=== PATIENT | female | born 1960 | race Caucasian/White ===

== ENCOUNTER → 2017-05-15 | Outpatient (CLI) | payer BC ==
--- NOTE | 2017-05-15 15:56 | BD ---
EXAMINATION TYPE: MG DEXA axial skeleton. DATE OF EXAM: 05/15/2017 COMPARISON: NONE CLINICAL HISTORY: N95.1 POST MENOPAUSAL SYMPTOMS Height: 64.5 Weight: 135 FRAX RISK QUESTIONS: Alcohol (3 or more units per day): NO Family History (Parent hip fracture): NO Glucocorticoids (More than 3mos): NO (Ex: prednisone, prednisolone, methylprednisolone, dexamethasone, and hydrocortisone). History of Fracture in Adulthood: YES Secondary Osteoporosis: NO 1. Type 1 Diabetes: NO 2. Hyperthyroidism: NO 3. Menopause before 45: NO 4. Malnutrition: NO 5. Chronic liver disease: NO Rheumatoid Arthritis: NO Current Tobacco Use: QUIT RISK FACTORS HISTORY OF: HX OF ADULT FRACTURE....RT HUMERUS 2014 Active: YES Diet low in dairy products/other sources of calcium: NO Postmenopausal woman: COMPLETE HX 2015 Lost more than 2 inches in height since high school: NO Hyperparathyroidism: NO Adrenal Insufficiency: NO MEDICATIONS: Additional Medications: MULTIVITAMIN AND FISH OIL DAILY ONLY Additional History: NONE TO NOTE EXAM MEASUREMENTS: Bone mineral densitometry was performed using the [employer] System. Bone mineral density as measured about the Lumbar spine is: ----- L1-L4(G/cm2): 0.840 T Score Values are as follows: ----- L1: -2.6 ----- L2: -2.9 ----- L3: -2.5 ----- L4: -3.4 ----- L1-L4: -2.8 Bone mineral density THIS IS HER FIRST BONE DENSITY SCAN.....BASELINE STUDY Bone mineral density about the R hip (g/cm2): 0.805 Bone mineral density about the L hip (g/cm2): 0.846 T Score values are as follows: -----R Neck: -2.1 -----L Neck: -2.3 -----R Total: -1.6 -----L Total: -1.3 Bone mineral density BASELINE STUDY FOR HER FRAX %'S: THERE IS A 14.9% CHANCE OF A MAJOR OSTEOPOROTIC FX AND A 2.6% CHANCE OF A HIP FX........ .PROBABILITY IN 10 YRS TIME IMPRESSION: Osteoporosis (T Score less than -2.5) as noted by T Score values at the There is increased fracture risk and therapy is usually indicated based on age. Re-Screen 1-2 years FOR HER LUMBAR SPINE. NOTE: T-SCORE=SD OF THE YOUNG ADULT MEAN.
--- NOTE | 2017-05-18 08:08 | MM ---
Reason for exam: screening (asymptomatic). Last mammogram was performed 1 year and 2 months ago. History: Patient is postmenopausal. Physical Findings: A clinical breast exam by your physician is recommended on an annual basis and results should be correlated with mammographic findings. MG 3D Screening Mammo W/Cad Bilateral CC and MLO view(s) were taken. Prior study comparison: March 18, 2016, bilateral MG 3d screening mammo w/cad. February 26, 2015, bilateral MG screening mammo w CAD. The breast tissue is extremely dense which could obscure a lesion on mammography. There is no discrete abnormality. No significant changes when compared with prior studies. ASSESSMENT: Negative, BI-RAD 1 RECOMMENDATION: Routine screening mammogram of both breasts in 1 year.
== END | disposition home or self-care (01) ==
LOC: RADMAMWWP 06:58
PROVIDERS: ATTEND Obstetrics & Gynecology
DX: Z12.31 Encounter for screening mammogram for malignant neoplasm of breast (principal); M81.0 Age-related osteoporosis without current pathological fracture; N95.1 Menopausal and female climacteric states
CPT/HCPCS: 77080; 77063; G0202

== ENCOUNTER → 2018-06-01 | Outpatient (CLI) | payer BC ==
--- NOTE | 2018-06-03 08:48 | MM ---
Reason for exam: screening (asymptomatic). Last mammogram was performed 1 year and 1 month ago. History: Patient is postmenopausal. Physical Findings: A clinical breast exam by your physician is recommended on an annual basis and results should be correlated with mammographic findings. MG 3D Screening Mammo W/Cad Bilateral CC and MLO view(s) were taken. Prior study comparison: May 15, 2017, bilateral MG 3d screening mammo w/cad. March 18, 2016, bilateral MG 3d screening mammo w/cad. The breast tissue is heterogeneously dense. This may lower the sensitivity of mammography. No significant changes when compared with prior studies. ASSESSMENT: Negative, BI-RAD 1 RECOMMENDATION: Routine screening mammogram of both breasts in 1 year. Patient should continue monthly self breast exams. A negative report should not preclude additional follow up of suspicious palpable abnormalities.
== END | disposition home or self-care (01) ==
LOC: RADMAMWWP 09:10
PROVIDERS: ATTEND Obstetrics & Gynecology
DX: Z12.31 Encounter for screening mammogram for malignant neoplasm of breast (principal)
CPT/HCPCS: 77063; 77067

== ENCOUNTER → 2019-06-17 | Outpatient (CLI) | payer BC ==
--- NOTE | 2019-06-17 17:40 | BD ---
EXAMINATION TYPE: Axial Bone Density DATE OF EXAM: 06/17/2019 COMPARISON: NONE CLINICAL HISTORY: Height: 65 Weight: 133.5 FRAX RISK QUESTIONS: Alcohol (3 or more units per day): no Family History (Parent hip fracture): no Glucocorticoids (More than 3mos): no (Ex: prednisone, prednisolone, methylprednisolone, dexamethasone, and hydrocortisone). History of Fracture in Adulthood: yes Secondary Osteoporosis: 1. Type 1 Diabetes: no 2. Hyperthyroidism: no 3. Menopause before 45: no 4. Malnutrition: no 5. Chronic liver disease: no Rheumatoid Arthritis: no Current Tobacco Use: no RISK FACTORS HISTORY OF: Postmenopausal woman: age 54 Lost more than 2 inches in height since high school: no MEDICATIONS: none Additional History: EXAM MEASUREMENTS: Bone mineral densitometry was performed using the [employer] System. Bone mineral density as measured about the Lumbar spine is: ----- L1-L4(G/cm2): 0.857 T Score Values are as follows: ----- L2: -2.8 ----- L3: -2.7 ----- L4: -2.8 ----- L1-L4: -2.7 Bone mineral density has: increased 2.7 % since study of: 05.15.2017 Bone mineral density about the R hip (g/cm2): 0.728 Bone mineral density about the L hip (g/cm2): 0.671 T Score values are as follows: -----R Neck: -2.2 -----L Neck: -2.6 -----R Total: -1.5 -----L Total: -1.4 Bone mineral density has: decreased -0.4 % since study of: 05.15.2017 IMPRESSION: Osteoporosis (T Score less than -2.5). There is increased fracture risk and therapy is usually indicated based on age. Re-Screen 1-2 years. NOTE: T-SCORE=SD OF THE YOUNG ADULT MEAN.
--- NOTE | 2019-06-20 10:17 | MM ---
Reason for exam: screening (asymptomatic). Last mammogram was performed 1 year and 1 month ago. History: Patient is postmenopausal. Physical Findings: A clinical breast exam by your physician is recommended on an annual basis and results should be correlated with mammographic findings. MG 3D Screening Mammo W/Cad Bilateral CC and MLO view(s) were taken. Prior study comparison: June 01, 2018, bilateral MG 3d screening mammo w/cad. May 15, 2017, bilateral MG 3d screening mammo w/cad. The breast tissue is heterogeneously dense. This may lower the sensitivity of mammography. No suspicious abnormality. No significant changes when compared with prior studies. ASSESSMENT: Negative, BI-RAD 1 RECOMMENDATION: Routine screening mammogram of both breasts in 1 year.
== END | disposition home or self-care (01) ==
LOC: RADMAMWWP 07:24
PROVIDERS: ATTEND Obstetrics & Gynecology
DX: Z12.31 Encounter for screening mammogram for malignant neoplasm of breast (principal); M81.0 Age-related osteoporosis without current pathological fracture
CPT/HCPCS: 77063; 77067; 77080

== ENCOUNTER 2020-07-04 11:20 | Inpatient (IN) | payer BC ==
[2020-07-04] MEDS ORDERED: SODIUM CHLORIDE 0.9% 500 ML 500 ML IV ONE (11:54)
--- NOTE | 2020-07-04 11:59 | ED ---
General Adult HPI - General Chief complaint: Psychiatric Symptoms Stated complaint: phych eval dizziness Time Seen by Provider: 07/04/20 11:25 Source: patient, RN notes reviewed, old records reviewed Mode of arrival: ambulatory Limitations: no limitations - History of Present Illness Initial comments: 59-year-old female presents emergency department after she had seen her primary medical care doctor. She has stated that she hit her head a while ago but she's not sure exactly when and she's here to be evaluated for that but according to Dr. kellogg when she called and she has to have a psychiatric evaluation because she has been paranoid and hallucinating and even talked about slitting her wrists. Patient lost her job a few weeks back and this when the symptoms started again. Patient believes her computer and her email are compromised. Patient denies any neck pain patient denies any fever chills per patient denies any chest pain difficulty breathing shortest breath per patient denies any abdominal pain patient denies nausea vomiting diarrhea. - Related Data Home Medications Medication Instructions Recorded Confirmed Multivitamins, Thera [Multivitamin 1 tab PO DAILY 10/09/16 10/21/16 (formulary)] Beulah-3 Fatty Acids/Fish Oil [Fish 1 cap PO DAILY 10/09/16 10/21/16 Oil 1,000 mg Softgel] Previous Rx's Medication Instructions Recorded Acetaminophen-Codeine 300-30mg 1 each PO Q4HR PRN #30 tab 10/23/16 [Tylenol w/codeine #3] Ibuprofen [Motrin] 600 mg PO Q6HR PRN #60 tab 10/23/16 Allergies Allergy/AdvReac Type Severity Reaction Status Date / Time No Known Allergies Allergy Verified 10/21/16 06:17 Review of Systems ROS Statement: Those systems with pertinent positive or pertinent negative responses have been documented in the HPI. ROS Other: All systems not noted in ROS Statement are negative. Past Medical History Past Medical History: No Reported History Additional Past Medical History / Comment(s): Fracture of left humerus History of Any Multi-Drug Resistant Organisms: None Reported Past Surgical History: Hysterectomy Additional Past Surgical History / Comment(s): wisdom teeth removed Past Anesthesia/Blood Transfusion Reactions: No Reported Reaction Past Psychological History: Depression Smoking Status: Former smoker Past Alcohol Use History: Daily, Heavy Past Drug Use History: None Reported - Past Family History Mother Family Medical History: No Reported History Additional Family Medical History / Comment(s): Stroke General Exam - General Exam Comments Initial Comments: GENERAL: Patient is well-developed and well-nourished. Patient is nontoxic and well- hydrated and is in mild distress. ENT: Neck is soft and supple. No significant lymphadenopathy is noted. Oropharynx is clear. Moist mucous membranes. Neck has full range of motion without eliciting any pain. EYES: The sclera were anicteric and conjunctiva were pink and moist. Extraocular movements were intact and pupils were equal round and reactive to light. Eyelids were unremarkable. PULMONARY: Unlabored respirations. Good breath sounds bilaterally. No audible rales rhonchi or wheezing was noted. CARDIOVASCULAR: There is a regular rate and rhythm without any murmurs gallops or rubs. ABDOMEN: Soft and nontender with normal bowel sounds. SKIN: Skin is clear with no lesions or rashes and otherwise unremarkable. NEUROLOGIC: Patient is alert and oriented x3. Cranial nerves II through XII are grossly intact. Motor and sensory are also intact. Normal speech, volume and content. Symmetrical smile. MUSCULOSKELETAL: Normal extremities with adequate strength and full range of motion. LYMPHATICS: No significant lymphadenopathy is noted PSYCHIATRIC: Normal psychiatric evaluation. Limitations: no limitations Course Vital Signs 07/04/20 11:23 Temperature 98.6 F Pulse Rate 96 Respiratory 16 Rate Blood Pressure 190/124 O2 Sat by Pulse 98 Oximetry Medical Decision Making - Lab Data Result diagrams: 07/04/20 12:55 07/04/20 13:01 Lab Results 07/04/20 07/04/20 Range/Units 12:55 13:01 WBC 5.5 (3.8-10.6) k/uL RBC 4.68 (3.80-5.40) m/uL Hgb 14.7 (11.4-16.0) gm/dL Hct 45.0 (34.0-46.0) % MCV 96.1 (80.0-100.0) fL MCH 31.4 (25.0-35.0) pg MCHC 32.7 (31.0-37.0) g/dL RDW 12.0 (11.5-15.5) % Plt Count 292 (150-450) k/uL Neutrophils % 61 % Lymphocytes % 27 % Monocytes % 7 % Eosinophils % 2 % Basophils % 1 % Neutrophils # 3.4 (1.3-7.7) k/uL Lymphocytes # 1.5 (1.0-4.8) k/uL Monocytes # 0.4 (0-1.0) k/uL Eosinophils # 0.1 (0-0.7) k/uL Basophils # 0.1 (0-0.2) k/uL Sodium 137 (137-145) mmol/L Potassium 4.3 (3.5-5.1) mmol/L Chloride 104 (98-107) mmol/L Carbon Dioxide 23 (22-30) mmol/L Anion Gap 10 mmol/L BUN 8 (7-17) mg/dL Creatinine 0.62 (0.52-1.04) mg/dL Est GFR (CKD-EPI)AfAm >90 (>60 ml/min/1.73 sqM) Est GFR (CKD-EPI)NonAf >90 (>60 ml/min/1.73 sqM) Glucose 107 H (74-99) mg/dL Calcium 9.9 (8.4-10.2) mg/dL Total Bilirubin 0.8 (0.2-1.3) mg/dL AST 24 (14-36) U/L ALT 16 (4-34) U/L Alkaline Phosphatase 56 (38-126) U/L Total Protein 7.6 (6.3-8.2) g/dL Albumin 4.9 (3.5-5.0) g/dL Disposition Clinical Impression: Depression, Psychosis, Suicidal ideation Disposition: ADMITTED IP TO THIS HOSP Referrals: Katie Cassidy MD [Primary Care Provider] - 1-2 days Time of Disposition: 14:51
[2020-07-04 13:23] LABS: Basophils # (A) 0.1 k/uL (0-0.2); Basophils % (A) 1 %; Eosinophils # (A) 0.1 k/uL (0-0.7); Eosinophils % (A) 2 %; HGB 14.7 gm/dL (11.4-16.0); Lymphocytes # (A) 1.5 k/uL (1.0-4.8); Lymphocytes % (A) 27 %; MCH 31.4 pg (25.0-35.0); MCHC 32.7 g/dL (31.0-37.0); MCV 96.1 fL (80.0-100.0); Mean Platelet Volume 7.4; Monocytes # (A) 0.4 k/uL (0-1.0); Monocytes % (A) 7 %; Neutrophils # (A) 3.4 k/uL (1.3-7.7); Neutrophils % (A) 61 %; Platelet Count 292 k/uL (150-450); RBC 4.68 m/uL (3.80-5.40); WBC 5.5 k/uL (3.8-10.6)
[2020-07-04 13:34] LABS: ALT 16 U/L (4-34); AST 24 U/L (14-36); African American GFR (CKD) >90 (>60 ml/min/1.73 sqM); Albumin 4.9 g/dL (3.5-5.0); Alkaline Phosphatase 56 U/L (38-126); Anion Gap 10 mmol/L; Blood Urea Nitrogen 8 mg/dL (7-17); Calcium 9.9 mg/dL (8.4-10.2); Carbon Dioxide 23 mmol/L (22-30); Chloride 104 mmol/L (98-107); Glucose 107 mg/dL (74-99); Non-African American GFR(CKD) >90 (>60 ml/min/1.73 sqM); Potassium 4.3 mmol/L (3.5-5.1); Sodium 137 mmol/L (137-145); Total Bilirubin 0.8 mg/dL (0.2-1.3); Total Protein 7.6 g/dL (6.3-8.2)
--- NOTE | 2020-07-04 14:02 | CT ---
EXAMINATION TYPE: CT brain wo con DATE OF EXAM: 07/04/2020 COMPARISON: None HISTORY: dizziness CT DLP: 1099.4 mGycm Automated exposure control for dose reduction was used. FINDINGS: Within the anterior temporal fossa on the right there is a 1.4 x 1 cm arachnoid cyst. Mild intracrani al atherosclerotic changes seen. Cerebellar tonsils low-lying at the level of foramen magnum. No evidence of mass effect or midline shift. No acute hemorrhage. Calvarium intact. Changes of mild c hronic sinusitis. IMPRESSION: SMALL ARACHNOID CYST RIGHT ANTERIOR TEMPORAL FOSSA.
[2020-07-04 14:58] LABS: Appearance,Urine Clear (Clear); Bacteria,Urine Rare /hpf; Bilirubin,Urine Negative (Negative); Blood,Urine Negative (Negative); Color,Urine Yellow; Glucose,Urine (UA) Negative (Negative); Hyaline Casts,Urine 3 /lpf (0-2); Ketones,Urine 1+ (Negative); Leukocyte Esterase,Urine Large (Negative); Mucus,Urine Occasional /hpf; Nitrite,Urine Negative (Negative); PH, Urine 5.5 (5.0-8.0); Protein,Urine Negative (Negative); RBC,Urine 3 /hpf (0-5); Specific Gravity,Urine 1.014 (1.001-1.035); Squamous Epithelial Cell,Urine 2 /hpf (0-4); Urobilinogen,Urine <2.0 mg/dL (<2.0); WBC,Urine 24 /hpf (0-5)
[2020-07-04 15:05] LABS: Amphetamine Screen,Urine Not Detected (NotDetected); Barbiturate Screen,Urine Not Detected (NotDetected); Benzodiazepines Screen,Urine Not Detected (NotDetected); Cocaine Screen,Urine Not Detected (NotDetected); Methadone Screen, Urine Not Detected (NotDetected); Opiate Screen,Urine Not Detected (NotDetected); Oxycodone Screen, Urine Not Detected (NotDetected); Phencyclidine Screen,Urine Not Detected (NotDetected); Tricyclic Antidepressant,Urine Not Detected (NotDetected); Urn Cannabinoid Scrn Not Detected (NotDetected)
[2020-07-04] MEDS ORDERED: LORazepam 1 MG TAB PO STA (17:48)
[2020-07-04] MEDS ORDERED: cloNIDine HCL 0.1 MG TAB PO STA (17:48)
[2020-07-04] MEDS ORDERED: MAG HYDROX/AL HYDROX/SIMETH 30 ML CUP PO PRN (18:20)
[2020-07-04] MEDS ORDERED: ACETAMINOPHEN TAB 325 MG TAB PO PRN (18:20)
[2020-07-04] MEDS ORDERED: ZIPRASIDONE 20 MG VIAL IM PRN (18:20)
[2020-07-04] MEDS ORDERED: LORazepam 1 MG TAB PO PRN (18:20)
[2020-07-04] MEDS ORDERED: MAGNESIUM HYDROXIDE 2,400 MG/10 ML CUP PO PRN (18:20)
--- NOTE | 2020-07-05 09:04 | P.HP ---
Psychiatric H&P - . H&P Date: 07/05/20 History & Physical: Allergies Allergy/AdvReac Type Severity Reaction Status Date / Time No Known Allergies Allergy Verified 07/04/20 15:03 Vital Signs Temp 98.5 F 07/05/20 06:25 Pulse 100 07/05/20 06:25 Resp 16 07/05/20 06:25 BP 99/60 07/05/20 06:25 Pulse Ox 98 07/04/20 17:34 Intake & Output 07/04/20 07/05/20 07/05/20 18:59 06:59 18:59 Weight 54.431 kg 54.431 kg Laboratory Last Values WBC 5.5 k/uL (3.8-10.6) 07/04/20 12:55 RBC 4.68 m/uL (3.80-5.40) 07/04/20 12:55 Hgb 14.7 gm/dL (11.4-16.0) 07/04/20 12:55 Hct 45.0 % (34.0-46.0) 07/04/20 12:55 MCV 96.1 fL (80.0-100.0) 07/04/20 12:55 MCH 31.4 pg (25.0-35.0) 07/04/20 12:55 MCHC 32.7 g/dL (31.0-37.0) 07/04/20 12:55 RDW 12.0 % (11.5-15.5) 07/04/20 12:55 Plt Count 292 k/uL (150-450) 07/04/20 12:55 Neutrophils % 61 % 07/04/20 12:55 Lymphocytes % 27 % 07/04/20 12:55 Monocytes % 7 % 07/04/20 12:55 Eosinophils % 2 % 07/04/20 12:55 Basophils % 1 % 07/04/20 12:55 Neutrophils # 3.4 k/uL (1.3-7.7) 07/04/20 12:55 Lymphocytes # 1.5 k/uL (1.0-4.8) 07/04/20 12:55 Monocytes # 0.4 k/uL (0-1.0) 07/04/20 12:55 Eosinophils # 0.1 k/uL (0-0.7) 07/04/20 12:55 Basophils # 0.1 k/uL (0-0.2) 07/04/20 12:55 Sodium 137 mmol/L (137-145) 07/04/20 13:01 Potassium 4.3 mmol/L (3.5-5.1) 07/04/20 13:01 Chloride 104 mmol/L (98-107) 07/04/20 13:01 Carbon Dioxide 23 mmol/L (22-30) 07/04/20 13:01 Anion Gap 10 mmol/L 07/04/20 13:01 BUN 8 mg/dL (7-17) 07/04/20 13:01 Creatinine 0.62 mg/dL (0.52-1.04) 07/04/20 13:01 Est GFR (CKD-EPI)AfAm >90 (>60 ml/min/1.73 sqM) 07/04/20 13:01 Est GFR (CKD-EPI)NonAf >90 (>60 ml/min/1.73 sqM) 07/04/20 13:01 Glucose 107 mg/dL (74-99) H 07/04/20 13:01 Calcium 9.9 mg/dL (8.4-10.2) 07/04/20 13:01 Total Bilirubin 0.8 mg/dL (0.2-1.3) 07/04/20 13:01 AST 24 U/L (14-36) 07/04/20 13:01 ALT 16 U/L (4-34) 07/04/20 13:01 Alkaline Phosphatase 56 U/L (38-126) 07/04/20 13:01 Total Protein 7.6 g/dL (6.3-8.2) 07/04/20 13:01 Albumin 4.9 g/dL (3.5-5.0) 07/04/20 13:01 TSH 0.773 mIU/L (0.465-4.680) 07/04/20 13:01 Urine Color Yellow 07/04/20 14:30 Urine Appearance Clear (Clear) 07/04/20 14:30 Urine pH 5.5 (5.0-8.0) 07/04/20 14:30 Ur Specific Dewitt 1.014 (1.001-1.035) 07/04/20 14:30 Urine Protein Negative (Negative) 07/04/20 14:30 Urine Glucose (UA) Negative (Negative) 07/04/20 14:30 Urine Ketones 1+ (Negative) H 07/04/20 14:30 Urine Blood Negative (Negative) 07/04/20 14:30 Urine Nitrite Negative (Negative) 07/04/20 14:30 Urine Bilirubin Negative (Negative) 07/04/20 14:30 Urine Urobilinogen <2.0 mg/dL (<2.0) 07/04/20 14:30 Ur Leukocyte Esterase Large (Negative) H 07/04/20 14:30 Urine RBC 3 /hpf (0-5) 07/04/20 14:30 Urine WBC 24 /hpf (0-5) H 07/04/20 14:30 Ur Squamous Epith Cells 2 /hpf (0-4) 07/04/20 14:30 Urine Bacteria Rare /hpf (None) H 07/04/20 14:30 Hyaline Casts 3 /lpf (0-2) H 07/04/20 14:30 Urine Mucus Occasional /hpf (None) H 07/04/20 14:30 Urine Opiates Screen Not Detected (NotDetected) 07/04/20 14:30 Ur Oxycodone Screen Not Detected (NotDetected) 07/04/20 14:30 Urine Methadone Screen Not Detected (NotDetected) 07/04/20 14:30 Ur Propoxyphene Screen Not Detected (NotDetected) 07/04/20 14:30 Ur Barbiturates Screen Not Detected (NotDetected) 07/04/20 14:30 U Tricyclic Antidepress Not Detected (NotDetected) 07/04/20 14:30 Ur Phencyclidine Scrn Not Detected (NotDetected) 07/04/20 14:30 Ur Amphetamines Screen Not Detected (NotDetected) 07/04/20 14:30 U Methamphetamines Scrn Not Detected (NotDetected) 07/04/20 14:30 U Benzodiazepines Scrn Not Detected (NotDetected) 07/04/20 14:30 Urine Cocaine Screen Not Detected (NotDetected) 07/04/20 14:30 U Marijuana (THC) Screen Not Detected (NotDetected) 07/04/20 14:30 07/05/20 07:19 59-year-old female presents emergency department after she had seen her primary medical care doctor. She has stated that she hit her head a while ago but she's not sure exactly when and she's here to be evaluated for that. According to her outpatient doctor, she has been paranoid and hallucinating and even talked about slitting her wrists. The patient was stabilized in the emergency room and transferred to the psychiatric unit she has not required when necessary's. Patient quit her job a few weeks back and this is when the symptoms started again. Patient believes her computer and her email and bank account are compromised. Symptoms: Patient acknowledges that she wished she was . 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 She asked her for firearm but is also been thinking of slitting her wrist. She says that these things occurred about a week ago and have been fading and at this point she has hope for the future. Review of systems: Patient denies any neck pain patient denies any fever chills per patient denies any chest pain difficulty breathing shortest breath per patient denies any abdominal pain patient denies nausea vomiting diarrhea. The rest of the review of systems is negative Medical.: The patient has no history of medical problems She had a physical exam done yesterday and it was negative for problems She did have a fracture of her left humerus She had a total hysterectomy about 6 years ago and her wisdom teeth removed Substance use: Patient has a history of heavy alcohol use denies other substances and she used to smoke Social history: The patient is second of 3 children born to her parents and stayed together until they in their 80s both with vascular problems dad had a stroke and mom had an aneurysm. She said she had a good upbringing and had a normal and early development she finished high school and enjoyed her time in high school playing in the [employer] playing the [employer]. 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 She had been for 31 years and says the marriage is going well. They have 3 sons ages 3028 and 26. She says older to use too much alcohol but her 26-year-old is doing well and is engaged in as a son who is a-year-old. She lives in a house with her and a dog and a Cat. And is somewhat worried about the cat as it is getting older. She has not done much lately to take care of herself as the only IT person at her job she does not take medications and she has tried to push herself to get out and golf but only once this summer. The patient denies any history The patient denies any legal issues Family history: The patient denies anybody in the family with severe depression or anxiety or psychiatric issues Mental status exam: The patient slept fairly well for her first night in the hospital. Her appetite is low and she has lost over 20 pounds. Memory and concentration are impaired for a college graduate IT person. She could remember 2 of 3 objects after 3 minutes, she could only name the last 2 presidents, she could only name for the [place] and had no idea where they were, she was able to subtract 7 from 93 but her processing is slow. She did well with abstract thinking, for "the grass looks greener on the other side of the fence" she said that means "make a change for the better". She saw the cats and snakes have teeth but could not think of any other similarity although that fact that they have tones came into her head and she was hesitant to share. So risk- taking and generativity are low. She could not remember the word carnivore or figure out what herbal or might mean and once I gave her those 2 definitions she could not reason out what an omnivore might be or what floor meant. This is very poor functioning for someone of her past ability. She is somewhat worried that old age is causing her dementia. ( I do not think this is dementia just depression). She says that the thoughts of suicidality were strong up until about a week ago but have been fading and since she came into the hospital basically vanished. She says she thinks she needs to find work in an entirely different field and go to some counseling to learn to stand up for herself and set better limits. Her affect is flat she moves slowly, eye contact is down, takes deep breaths, responds slowly she is not tearful no evidence of responding to any psychotic features and denies any hallucinations illusions or delusions. Diagnosis major depression single episode nonpsychotic Assessment the patient probably cannot climb out of this depression by simply staying off work and trying to push herself to go golfing because she gets to ruminating on maybe she should've done this and why couldn't she do that. I do not think that she has paranoia but what happened was to get understandable worries and be unable to turn them off and make them bigger than they really deserved. Plan: start Cymbalta and melatonin for sleep ever go to groups and classes and see how she functions and bright discharge her tomorrow as she is not suicidal at this time 07/05/20 08:51 07/05/20 09:01
[2020-07-05] MEDS: DULoxetine HCL 20 MG CAPSULE.DR PO SCH (09:43)
[2020-07-05] MEDS: MELATONIN 5 MG TABLET PO SCH (21:32)
--- NOTE | 2020-07-06 00:56 | P.CONS ---
History of Present Illness - History of Present Illness This is a pleasant 59 years old female with past medical history of depression. Was admitted for signs and symptoms of severe depression to mental health unit, medical consult was requested for medical management. Patient was walking in the hallway with no difficulty, no chest pain or dyspnea. Denies any abdominal complaints or pain. She tolerates diet well and she denie s nausea vomiting. No fever She is hemodynamically stable She denies smoking alcohol or illicit drugs however she drinks beers every day but she could not say how much Last drink was 2 days, no signs or symptoms of withdrawal currently Labs and vitals were reviewed which were unremarkable except for abnormal UA with suspicion of infection however patient denies any symptoms, no dysuria, no change in frequency, no urgency or hesitancy, no suprapubic tenderness. This of this patient does not need antibiotic Review of Systems CONSTITUTIONAL: No fever, no malaise, no fatigue. HEENT: No recent visual problems or hearing problems. Denied any sore throat. CARDIOVASCULAR: No orthopnea, PND, no palpitations, no syncope. PULMONARY: No shortness of breath, no cough, no hemoptysis. GASTROINTESTINAL: No diarrhea, no nausea, no vomiting, no abdominal pain. Normoa ctive bowel sounds. NEUROLOGICAL: No headaches, no weakness, no numbness. HEMATOLOGICAL: Denies any bleeding or petechiae. GENITOURINARY: Denies any burning micturition, frequency, or urgency. MUSCULOSKELETAL/RHEUMATOLOGICAL: Denies any joint pain, swelling, or any muscle pain. ENDOCRINE: Denies any polyuria or polydipsia. Past Medical History Past Medical History: No Reported History Additional Past Medical History / Comment(s): Fracture of left humerus History of Any Multi-Drug Resistant Organisms: None Reported Past Surgical History: Hysterectomy Additional Past Surgical History / Comment(s): wisdom teeth removed Past Anesthesia/Blood Transfusion Reactions: No Reported Reaction Past Psychological History: Depression Smoking Status: Former smoker Past Alcohol Use History: Daily, Heavy Additional Past Alcohol Use History / Comment(s): 5 cigs/day for 30 yrs. Past Drug Use History: None Reported - Past Family History Mother Family Medical History: No Reported History Additional Family Medical History / Comment(s): Stroke Medications and Allergies Home Medications Medication Instructions Recorded Confirmed Type Multivitamins, Thera [Multivitamin 1 tab PO DAILY 10/09/16 07/04/20 History (formulary)] Calcium Carbonate/Vitamin D3 1 tab PO DAILY 07/04/20 07/04/20 History [Caltrate 600 Plus D3 Tablet] Allergies Allergy/AdvReac Type Severity Reaction Status Date / Time No Known Allergies Allergy Verified 07/04/20 15:03 Physical Exam Vitals: Vital Signs Temp Pulse Pulse Resp BP BP Pulse Ox 07/05/20 09:44 107 H 16 105/70 07/05/20 06:25 98.5 F 100 16 99/60 07/04/20 20:54 91 89/56 07/04/20 19:33 97.8 F 90 20 150/104 07/04/20 19:26 101 H 164/107 07/04/20 17:34 98.1 F 94 18 163/99 98 GENERAL: The patient is alert and oriented x3, not in any acute distress. Well developed, well nourished. HEENT: Pupils are round and equally reacting to light. EOMI. No scleral icterus. No conjunctival pallor. Normocephalic, atraumatic. No pharyngeal erythema. No thyromegaly. CARDIOVASCULAR: S1 and S2 present. No murmurs, rubs, or gallops. PULMONARY: Chest is clear to auscultation, no wheezing or crackles. ABDOMEN: Soft, nontender, nondistended, normoactive bowel sounds. No palpable organomegaly. MUSCULOSKELETAL: No joint swelling or deformity. EXTREMITIES: No cyanosis, clubbing, or pedal edema. NEUROLOGICAL: Gross neurological examination did not reveal any focal deficits. SKIN: No rashes. No petechiae Results CBC & Chem 7: 07/04/20 12:55 07/04/20 13:01 Labs: Microbiology - Last 24 Hours (Table) 07/04/20 14:30 Urine Culture - Preliminary Urine,Voided Assessment and Plan Assessment: -Major depression and other psychiatric illnesses, managements were psych primary team -Alcohol abuse at-risk of alcohol withdrawal, continue with Ativan as needed and thiamin -Asymptomatic bacteriuria, patient is asymptomatic and no need for treatment DVT prophylaxis: Patient is mobile, low risk GI prophylaxis, no need We recommend patient follow up with her PCP within one week, patient was instructed with the same Thank you for consulting us, we will see the patient on as needed basis
[2020-07-06] MEDS: THIAMINE 100 MG TAB PO SCH (09:25)
[2020-07-06] MEDS: DULoxetine HCL 20 MG CAPSULE.DR PO SCH (09:25)
--- NOTE | 2020-07-06 11:00 | P.PN ---
Subjective Progress Note Date: 07/06/20 Principal diagnosis: Major depression single severe Alcohol abuse disorder Subjective the patient's talk to me and was basically complaining about having a terrible memory and that she doesn't enjoy groups because she can't figure out what's going on. I gave her some brief ideas to comfort herself and she could not retain. She asked to talk to me again sat down and stared at me and then she said, " I can't be here". But could not make a case for post discharge plans Objective patient has flat affect vacant stares slow responses decreased body activity Groups the patient has been attending and talks well with peers and staff is spontaneous poor ADLs Staff report is that she is oriented but vague withdrawn compliant disheveled denies suicide homicide or psychotic symptoms Vital signs temperature is 97.9 heart rate 110 respirations 17 blood pressure 146/90 pO2 is 97 Labs nothing new Assessment patient is severely slowed down from her depression and cannot understand basic ideas plan communicate or take care of herself Plan increase Cymbalta to 40 and on Thursday to 60 Objective - Vital Signs Vital signs: Vital Signs Temp 97.9 F 07/06/20 06:28 Pulse 110 H 07/06/20 06:28 Resp 17 07/06/20 06:28 BP 146/90 07/06/20 06:28 Pulse Ox 97 07/06/20 06:28 - Labs CBC & Chem 7: 07/04/20 12:55 07/04/20 13:01 Labs: Microbiology - Last 24 Hours (Table) 07/04/20 14:30 Urine Culture - Final Urine,Voided Strep agalactiae - (group b)
[2020-07-06] MEDS: MELATONIN 5 MG TABLET PO SCH (21:06)
[2020-07-07] MEDS: DULoxetine HCL 20 MG CAPSULE.DR PO SCH (09:22)
[2020-07-07] MEDS: THIAMINE 100 MG TAB PO SCH (09:22)
[2020-07-07] MEDS: AMOXICILLIN 500 MG CAP PO SCH ×2 (13:30→22:12)
--- NOTE | 2020-07-07 14:04 | PN ---
PROGRESS NOTE DATE OF SERVICE: 07/07/2020 CHIEF COMPLAINT: The patient was depressed. She had ongoing depression over the last year with recent intensification to the point where she asked her for a gun. INTERVAL HISTORY: Patient has been doing fair. She had a quiet day yesterday. She comes out in the day area. She has been attending groups. She has been appropriate in her interactions. She has been cooperative with all aspects of care. She tends to have a withdrawn quiet manner. At times she was noted in groups to be disorganized in thoughts. She slept fairly well last night. Today she has been up. She attended groups today and in 1 group it was documented "the patient attended group and attentively listened to discussion. The patient chose not to participate verbally." When I reviewed issues with the patient. She notes that her drinking history goes back 7 or 8 years. Prior to that, she had not had any substance use issues. She could acknowledge that at least to some extent drinking was a coping mechanism for stress, in part relating to a high stress work situation. She noted over the last 7 years she was typically drinking a six- pack a day though sometimes less. She did not have any periods of sobriety in the last 6 or 7 years. She acknowledged that she did not really have the concept that drinking was a problem for her, though she notes that she had a lot of stress in the early part of this year with the fact that her son was troubled with substance abuse issues. She notes that there was increasing stress with the COVID situation. She quit her job 2 weeks ago, in part because she felt the demands were getting too much for her to keep up with. 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 Overall she feels that her mood is improving some, though it is noteworthy that she presents in somewhat of a daze. She asked questions about how long she would be in the hospital. As one example, I talked to her about the process of going through withdrawal and noting that as a 2-3 month process. The patient asked the question would she need to be in the hospital for that length of time. She acknowledged that she has had recent struggles with memory, focus, concentration and information processing. We discussed all of these as a part of substance withdrawal from alcohol. The patient tolerates her psychotropic medication. MENTAL STATUS: Patient sat without restlessness. At times she seemed to have almost a blank stare. She answered questions with 1 or 2 word responses. She was not spontaneous or interactive. At times she had latency in response and seemed to have trouble organizing her thoughts. Her affect was flat. Her mood was moderately depressed. She appeared to be distressed. There was no clear indication of thought disorder, though the patient was able to acknowledge that her thoughts coming into the hospital were possibly not in touch with reality. She was denying any thoughts of harm to self or others. She was oriented and alert. ASSESSMENT: I will continue the current diagnosis of depression, though would add alcohol dependence and acute alcohol withdrawal. Vital signs have fluctuated, though vital signs this morning at 9:30 included BP 135/98, pulse 101 and regular, temp 98, respirations 20. CIWA scores have been zero. I will continue Cymbalta 40 mg a day. I had an extensive discussion with the patient regarding alcohol withdrawal. We discussed time course of typically 2-3 months of early withdrawal. We reviewed withdrawal symptoms. I discussed a therapeutic activity program to help manage early withdrawal symptoms. We talked about ways to help organize her day so that she can start becoming productive in one way or another. We talked about longer-term goals such as her returning to school or aiming towards productive activities in her life. We will focus on stabilization and discharge planning. AURORA / HEDYN: [id number] /
[2020-07-07] MEDS: MELATONIN 5 MG TABLET PO SCH (22:13)
[2020-07-08] MEDS: DULoxetine HCL 20 MG CAPSULE.DR PO SCH (08:44)
[2020-07-08] MEDS: AMOXICILLIN 500 MG CAP PO SCH ×2 (08:44→21:18)
[2020-07-08] MEDS: THIAMINE 100 MG TAB PO SCH (08:44)
[2020-07-08] MEDS: MELATONIN 5 MG TABLET PO SCH (21:18)
[2020-07-09 07:15] VITALS: TEMP 98.8
[2020-07-09] MEDS: DULoxetine HCL 20 MG CAPSULE.DR PO SCH (09:24)
[2020-07-09] MEDS: AMOXICILLIN 500 MG CAP PO SCH ×2 (09:24→21:18)
[2020-07-09] MEDS: THIAMINE 100 MG TAB PO SCH (09:24)
--- NOTE | 2020-07-09 10:56 | PN ---
PROGRESS NOTE DATE OF SERVICE: 07/08/2020 CHIEF COMPLAINT: The patient was depressed, she had ongoing depression over the last year with recent intensification to the point where she asked her for a gun. INTERVAL HISTORY: Patient has been doing fair. She had a quiet day yesterday. She comes out on the unit, though she tends to have a very quiet reserved manner. She has been attending groups. She seems to benefit from groups, though she says very little in group. She slept fair last night. Today she has been up. She did not attend groups this morning. When I talked to her she did not have any specific complaints or concerns. She notes that her visited yesterday. They talked about some of her issues. She said that her attributed a lot of her problems to just the stress she was under with work and a few other issues. She said that she talked to her about the idea that she can have alcohol at home and that she has to stay completely off alcohol. She said her was in agreement with that. The patient acknowledged that she has had issues with organizing her thoughts and being on track with thought processes. When I reviewed the note of Dr. Aponte from Thursday where she almost seemed confused, it was not clear that she was fully aware of how she was functioning on Thursday. She acknowledges that her thought process is not so clear and she continues with memory issues. She does seem to understand that most of this is secondary to early acute alcohol withdrawal. She seems to be slowly coming to acceptance of the extent of problem she has had with her drinking. We had further discussion about what things she anticipates for her life going forward and she does seem to be somewhat in a fog about that. It is almost as if she does not imagine that she could accomplish more going forward. We talked about withdrawal management issues and I encouraged her to use the therapeutic walking program while she is on the unit and also how she can continue with a physical activity program when she is home to help manage early withdrawal. We talked about the benefits of that in terms of managing withdrawal issues as well as to help in improving her cognition. The patient tolerates her psychotropic medications. MENTAL STATUS EXAM: Patient sat without restlessness without restlessness. She had almost a staring gaze. She answered questions appropriately, though she says very little. At times there is latency in her responses. She at times seems to be deep in thought, though it is not clear she knows what to say when questions are asked. Her affect was blunted. Her mood reserved, she seems somewhat distressed. There was no indication of thought disorder other than the possibility of disorganized thoughts relating to her alcohol withdrawal. She voiced no thoughts of harm to herself or others. Cognition was clear. ASSESSMENT: I will continue the current diagnosis and treatment plan. Continue Cymbalta 40 mg a day as her only psychotropic medication. I reviewed medication issues with the patient. We had an extensive discussion with her regarding withdrawal and especially addressing cognitive issues that she is having, which are clearly related to early acute alcohol withdrawal. I discussed discharge planning issues. She says her will be visiting today and encouraged her to review discharge planning with him in what would be good options for followup for her. We will focus on stabilization and discharge planning. AURORA / ALYX: [id number] /
[2020-07-09] MEDS ORDERED: DULoxetine HCL 20 MG CAPSULE.DR PO SCH (11:15)
[2020-07-09] MEDS ORDERED: DULoxetine HCL 20 MG CAPSULE.DR PO ONE (12:00)
[2020-07-09] MEDS: MELATONIN 5 MG TABLET PO SCH (21:18)
[2020-07-10 06:42] VITALS: BP 124/69; PULSE 109; RESP 17
[2020-07-10] MEDS ORDERED: DULoxetine HCL 60 MG CAPSULE.DR PO SCH (09:00)
--- NOTE | 2020-07-10 09:39 | P.PN ---
Subjective Progress Note Date: 07/09/20 Principal diagnosis: Major depression single severe Alcohol abuse disorder Subjective: Patient says she been sleeping well and eating well. She still complains of memory problems and has trouble with decisions like is she doing well enough to be discharged or not. This is unusual because every patient seems to think that this is time for them to go and she is not sure. Objective: The patient has been attending groups, taking good care of her hygiene, so elements of withdrawal from Effexor withdrawal speech seems to be spontaneous, if somewhat soft. She does not talk much with peers but based good attention to staff does tend to wander in and out of group. She requires a lot of verbal prompting in order to participate in group. Overall she seems to be calm soft spoken and cooperative oriented and denies suicidality or homicidality and no psychotic symptoms Vital signs temperature is 98.8 heart rate is 115 respirations 16 blood pressure 133/85 Labs nothing Her who saw her this weekend and felt that she has made good progress and that he thinks she could be at home safely. I reviewed with him the purpose of the medications and how long it takes to work. Mental status exam the patient still uses words and has trouble forming plans and full sentences. However she is doing much better at solving problems such as where is my 's phone number. She went and got her own phone and read it off of that and then was able to remember at all the way back to my office she could remember 3 of 3 objects for 5 minutes she is not tearful no psychotic symptoms. She does not want to acknowledge that she got herself burned out and wants to say was alcohol. She will need to get into some help for dealing with that but she will need some counseling to counter her feeling that she has permanently damaged her brain and is all hopeless. Assessment patient is improving and I think can continue outpatient if she continues to do well today. So I'm looking for discharge tomorrow Objective - Vital Signs Vital signs: Vital Signs Temp 98.8 F 07/09/20 06:44 Pulse 115 H 07/09/20 06:44 Resp 16 07/09/20 06:44 BP 133/85 07/09/20 06:44 Pulse Ox 97 07/06/20 06:28 Intake & Output 07/08/20 07/09/20 07/09/20 18:59 06:59 18:59 Weight 53.7 kg - Labs CBC & Chem 7: 07/04/20 12:55 07/04/20 13:01
[2020-07-10] MEDS: AMOXICILLIN 500 MG CAP PO SCH (09:53)
[2020-07-10] MEDS: THIAMINE 100 MG TAB PO SCH (09:53)
[2020-07-10] MEDS ORDERED: DULoxetine HCL 20 MG CAPSULE.DR PO SCH (10:00)
--- NOTE | 2020-07-10 11:26 | P.DS ---
Providers Date of admission: 07/04/20 17:59 Expected date of discharge: 07/10/20 Attending physician: Yamilex Aponte MD Consults: 07/04/20 18:20 Consult Physician Routine Consulting Provider: Dev Mittal Consult Reason/Comments: H and P Do you want consulting provider notified?: Yes [facility] Course: The patient was admitted on 07/04/2024 depression hallucinating even making comments about slashing her wrists. She has gone to groups and classes and I've seen her every day and she is no more hallucinating or feeling suicidal. She is still bothered by her poor memory and low energy. She was started on Cymbalta and at 40 mg she has some anticholinergic side effects some blurred vision and a little dry mouth I'm not going to increase to 60 I think the 40 will work and will help her with focus and staying, calm. In group she was noted to be compliant somewhat blunted in her affect Stadol time talks with staff but not much with patients. Mental status: She had a slight feeling that other people don't like her and that "I don't fit in ". She also wants to blame her dysfunction on anything other than burn out. She is slow to respond decrease psychomotor activity and decreased eye contact gait and station are somewhat slow. However she is cooperative denies suicidal thoughts denies homicidal thoughts denies any hallucinations or delusions (I think the feeling that people don't like her talking about her just part of her depression.) She is oriented to person place time. Assessment patient still depressed but unexpected Cymbalta to work for a couple more weeks. She has good follow-up and good support from her and I think that she can go home and should not drive though until everybody agrees that her function is better. She was given a month's supply of Cymbalta and appointment for follow-up both for medications and counseling. Assessment: Patient is still depressed but no expect the medication to work for couple more weeks she has not been suicidal or homicidal and I think would do better in her natural environment and I talked her who felt that she had maximized her hospital benefit he would like to have her home so I think she is safe for discharge. Health Concerns: No acute medical problems review of systems is negative no reported history of chronic medical problems Pertinent Studies: She had a hematology run on 07/04/2020 which was fine chemistry was fine urine showed 1+ ketones probably because she wasn't eating she has been eating well in here no sugar in the urine. Toxicology showed no sign of substance abuse Vital signs: Temperature 98.8 heart rate 109's respirations 17 blood pressure 124/80 pO2 97 Procedures: None Patient Condition at Discharge: Stable Plan - Discharge Summary Discharge Rx Participant: No New Discharge Prescriptions: New Amoxicillin 500 mg PO BID cap DULoxetine HCL [Cymbalta] 40 mg PO DAILY 30 Days #60 capsule. Melatonin 5 mg PO HS tablet Thiamine [Vitamin B-1] 100 mg PO DAILY tab Continue Multivitamins, Thera [Multivitamin (formulary)] 1 tab PO DAILY Calcium Carbonate/Vitamin D3 [Caltrate 600 Plus D3 Tablet] 1 tab PO DAILY Discharge Medication List Multivitamins, Thera [Multivitamin (formulary)] 1 tab PO DAILY 10/09/16 [History] Calcium Carbonate/Vitamin D3 [Caltrate 600 Plus D3 Tablet] 1 tab PO DAILY 07/04/20 [History] Amoxicillin 500 mg PO BID cap 07/10/20 [Rx] DULoxetine HCL [Cymbalta] 40 mg PO DAILY 30 Days #60 capsule. 07/10/20 [Rx] Melatonin 5 mg PO HS tablet 07/10/20 [Rx] Thiamine [Vitamin B-1] 100 mg PO DAILY tab 07/10/20 [Rx] Follow up Appointment(s)/Referral(s): Katie Cassidy MD [Primary Care Provider] - 1-2 days Activity/Diet/Wound Care/Special Instructions: Activity and diet as tolerated. Avoid the use of street drugs and alcohol. Take all medications as prescribed. When you are in need of refills on your medications please contact your medical provider and/or outpatient psychiatrist to have this done. Please go to scheduled outpatient appointment for aftercare treatment. If symptoms return or become worse, call the crisis line at and/or go to the nearest emergency room for evaluation.
== END 2020-07-10 14:11 | disposition home or self-care (01) | DRG 885 ==
LOC: EC 11:20 → 3MHU 17:59
PROVIDERS: ADMIT Psychiatry & Neurology Psychiatry; ATTEND Psychiatry & Neurology Psychiatry
DX: F32.2 Major depressive disorder, single episode, severe without psychotic features (principal); R45.851 Suicidal ideations; F10.230 Alcohol dependence with withdrawal, uncomplicated; F29 Unspecified psychosis not due to a substance or known physiological condition; R82.71 Bacteriuria; Z79.899 Other long term (current) drug therapy; Z87.81 Personal history of (healed) traumatic fracture; Z90.710 Acquired absence of both cervix and uterus; Z56.0 Unemployment, unspecified; Z87.891 Personal history of nicotine dependence; Z82.3 Family history of stroke; Z82.49 Family history of ischemic heart disease and other diseases of the circulatory system
CPT/HCPCS: 36415; 70450; 80053; 80306; 81001; 82075; 84443; 85025; 87086; 96360; 96361; 99285

== ENCOUNTER 2020-09-08 13:08 | Inpatient (IN) | payer BC ==
--- NOTE | 2020-09-08 14:37 | XR ---
EXAMINATION TYPE: XR KUB DATE OF EXAM: 09/08/2020 COMPARISON: NONE HISTORY: Constipation for 1 week TECHNIQUE: 2 views upright FINDINGS: There is no sign of intestinal obstruction or pneumoperitoneum. Fecal pattern is fairly nor mal. There is no evidence of a mass. There are no pathologic calcifications over the kidneys. Lung ba ses are clear. IMPRESSION: Nonacute abdomen. No evidence of any significant constipation.
[2020-09-08] MEDS ORDERED: SODIUM CHLORIDE 0.9% 1,000 ML IV STA (15:03)
[2020-09-08 15:33] LABS: Basophils % (A) 1 %; Eosinophils % (A) 1 %; HCT 41.6 % (34.0-46.0); HGB 14.1 gm/dL (11.4-16.0); Lymphocytes # (A) 1.1 k/uL (1.0-4.8); Lymphocytes % (A) 20 %; MCH 30.6 pg (25.0-35.0); MCHC 33.9 g/dL (31.0-37.0); Monocytes # (A) 0.3 k/uL (0-1.0); Monocytes % (A) 5 %; Neutrophils % (A) 73 %; Platelet Count 260 k/uL (150-450); RBC 4.61 m/uL (3.80-5.40); RDW 12.4 % (11.5-15.5); WBC 5.5 k/uL (3.8-10.6)
[2020-09-08 15:43] LABS: MCV 90.4 fL (80.0-100.0)
[2020-09-08 15:46] LABS: ALT 30 U/L (4-34); AST 34 U/L (14-36); African American GFR (CKD) >90 (>60 ml/min/1.73 sqM); Alkaline Phosphatase 62 U/L (38-126); Anion Gap 20 mmol/L; Blood Urea Nitrogen 20 mg/dL (7-17); Calcium 10.4 mg/dL (8.4-10.2); Carbon Dioxide 20 mmol/L (22-30); Chloride 97 mmol/L (98-107); Glucose 77 mg/dL (74-99); Lipase 154 U/L (23-300); Non-African American GFR(CKD) 85 (>60 ml/min/1.73 sqM); Potassium 4.1 mmol/L (3.5-5.1); Sodium 137 mmol/L (137-145); Total Bilirubin 1.3 mg/dL (0.2-1.3); Total Protein 7.6 g/dL (6.3-8.2)
--- NOTE | 2020-09-08 16:09 | ED ---
Psych HPI - General Source: patient, family Mode of arrival: ambulatory <Howie Rosario - Last Filed: 09/08/20 18:53> <Temo Verma - Last Filed: 09/08/20 19:49> - General Chief Complaint: Psychiatric Symptoms Stated Complaint: Mental health Time Seen by Provider: 09/08/20 14:03 - History of Present Illness Initial Comments: 59-year-old female presenting to the emergency department with a chief complaint of constipation. Patient states she has not been eating well for the past week. States she is only able to drink water. She denies any nausea or vomiting. States she feels constipated. states the patient has been battling with depression but has decided not to take her citalopram for the past few weeks. He states the medication as prescribed a primary care physician. The patient reports about 2 months ago she was admitted to the hospital for having suicidal thoughts. She is denying any suicidal, homicidal thoughts or ideations at the moment. She denies any abdominal pain back pain chest pain or shortness of breath. (Howie Rosario) - Related Data Home Medications Medication Instructions Recorded Confirmed Citalopram Hydrobromide [CeleXA] 20 mg PO DAILY 09/08/20 09/08/20 Allergies Allergy/AdvReac Type Severity Reaction Status Date / Time No Known Allergies Allergy Verified 09/08/20 19:23 Review of Systems ROS Other: All systems not noted in ROS Statement are negative. <Howie Rosario - Last Filed: 09/08/20 18:53> ROS Other: All systems not noted in ROS Statement are negative. <Temo Verma - Last Filed: 09/08/20 19:49> ROS Statement: Those systems with pertinent positive or pertinent negative responses have been documented in the HPI. Past Medical History Past Medical History: No Reported History Additional Past Medical History / Comment(s): Fracture of left humerus History of Any Multi-Drug Resistant Organisms: None Reported Past Surgical History: Hysterectomy Additional Past Surgical History / Comment(s): wisdom teeth removed Past Anesthesia/Blood Transfusion Reactions: No Reported Reaction Past Psychological History: Depression Smoking Status: Former smoker Past Alcohol Use History: Daily, Heavy Past Drug Use History: None Reported - Past Family History Mother Family Medical History: No Reported History Additional Family Medical History / Comment(s): Stroke <Howie Rosario - Last Filed: 09/08/20 18:53> General Exam Limitations: no limitations General appearance: alert, in no apparent distress Head exam: Present: atraumatic, normocephalic, normal inspection Eye exam: Present: normal appearance, PERRL, EOMI Pupils: Present: normal accommodation ENT exam: Present: normal exam, normal oropharynx, mucous membranes moist, TM's normal bilaterally, normal external ear exam Neck exam: Present: normal inspection, full ROM. Absent: tenderness Respiratory exam: Present: normal lung sounds bilaterally. Absent: respiratory distress, wheezes, rales Cardiovascular Exam: Present: regular rate, normal rhythm, normal heart sounds. Absent: bradycardia, tachycardia, systolic murmur, rubs GI/Abdominal exam: Present: soft. Absent: distended, tenderness, guarding, rebound Extremities exam: Present: normal inspection, full ROM, normal capillary refill. Absent: tenderness, pedal edema, joint swelling Back exam: Present: normal inspection, full ROM. Absent: tenderness, CVA tenderness (R), CVA tenderness (L) Neurological exam: Present: alert, oriented X3 Psychiatric exam: Present: depressed, flat affect Skin exam: Present: warm, dry, intact, normal color <Howie Rosario - Last Filed: 09/08/20 18:53> Course Vital Signs 09/08/20 13:52 Temperature 97.7 F Pulse Rate 97 Respiratory 18 Rate Blood Pressure 111/75 O2 Sat by Pulse 98 Oximetry Medical Decision Making - Lab Data Result diagrams: 09/08/20 15:19 09/08/20 15:19 <Howie Rosario - Last Filed: 09/08/20 18:53> - Lab Data Result diagrams: 09/08/20 15:19 09/08/20 15:19 <Temo Verma - Last Filed: 09/08/20 19:49> - Medical Decision Making 59-year-old female presenting to emergency Department with chief complaint of constipation. On physical examination, patient has no abdominal pain but she does appear to be depressed. I gave the patient water she was drinking and without any vomiting. KUB is unremarkable. CBC is unremarkable. CMP reveals increase in BUN which I suspect is secondary to not having much intake of fluids or solids. She was not able to give a urine sample. EPS evaluated patient and they will admit for further psychiatric management. Patient has 1 L bolus fluids. At this time patient care transferred to Dr. Verma. (Howie Rosario) patient was seen by mental health services with plans for admission. (Temo Verma) - Lab Data Lab Results 09/08/20 09/08/20 Range/Units 15:19 15:19 WBC 5.5 (3.8-10.6) k/uL RBC 4.61 (3.80-5.40) m/uL Hgb 14.1 (11.4-16.0) gm/dL Hct 41.6 (34.0-46.0) % MCV 90.4 D (80.0-100.0) fL MCH 30.6 (25.0-35.0) pg MCHC 33.9 (31.0-37.0) g/dL RDW 12.4 (11.5-15.5) % Plt Count 260 (150-450) k/uL MPV 8.0 Neutrophils % 73 % Lymphocytes % 20 % Monocytes % 5 % Eosinophils % 1 % Basophils % 1 % Neutrophils # 4.0 (1.3-7.7) k/uL Lymphocytes # 1.1 (1.0-4.8) k/uL Monocytes # 0.3 (0-1.0) k/uL Eosinophils # 0.0 (0-0.7) k/uL Basophils # 0.0 (0-0.2) k/uL Sodium 137 (137-145) mmol/L Potassium 4.1 (3.5-5.1) mmol/L Chloride 97 L (98-107) mmol/L Carbon Dioxide 20 L (22-30) mmol/L Anion Gap 20 mmol/L BUN 20 H (7-17) mg/dL Creatinine 0.77 (0.52-1.04) mg/dL Est GFR (CKD-EPI)AfAm >90 (>60 ml/min/1.73 sqM) Est GFR (CKD-EPI)NonAf 85 (>60 ml/min/1.73 sqM) Glucose 77 (74-99) mg/dL Calcium 10.4 H (8.4-10.2) mg/dL Total Bilirubin 1.3 (0.2-1.3) mg/dL AST 34 (14-36) U/L ALT 30 (4-34) U/L Alkaline Phosphatase 62 (38-126) U/L Total Protein 7.6 (6.3-8.2) g/dL Albumin 5.0 (3.5-5.0) g/dL Lipase 154 (23-300) U/L Disposition Is patient prescribed a controlled substance at d/c from ED?: No Time of Disposition: 18:56 <Howie Rosario - Last Filed: 09/08/20 18:53> <Temo Verma - Last Filed: 09/08/20 19:49> Clinical Impression: Depression Disposition: TRANSFER TO PSYCH HOSP/UNIT Condition: Fair
[2020-09-08] MEDS ORDERED: ACETAMINOPHEN TAB 325 MG TAB PO PRN (19:53)
[2020-09-08] MEDS ORDERED: MAGNESIUM HYDROXIDE 2,400 MG/10 ML CUP PO PRN (19:53)
[2020-09-08] MEDS ORDERED: MAG HYDROX/AL HYDROX/SIMETH 30 ML CUP PO PRN (19:53)
[2020-09-08] MEDS ORDERED: hydrOXYzine pamoate 25 MG CAP PO PRN (19:57)
--- NOTE | 2020-09-09 04:45 | P.CONS ---
History of Present Illness - Reason for Consult Consult date: 09/09/20 MEDICAL EVALUATIO N Requesting physician: Ed Mckay - Chief Complaint consitpation , dysphagia - History of Present Illness 59 year old female with depression , history of suicidal ideation patient was brought in by her due to severe depression and complaining that patient has very low PO input for the past 1-2 weeks patient claims that she is having dysphagia , and feels food stuck at the stomach , and she is not tolerating any solid food. she claims that liquids also make her nauseated. she claims that she has lost about 40 lb over past few months . she is afraid to eat. she denies any past medical history , denies any stomach pathology in the past, and prashanth having any EGD done in the past. patient admits to hearing noises that she cant explain at home, however she did not explain further when asked. patient denies any chest pain , trouble breathing, fever, chills, changes in her urine habits. she feels constipated. denies any GI bleed blood work in the ed was unremarkable overall. KUB was unremarkable Review of Systems Pertinent positives as noted in HPI. All other systems were reviewed and are negative Past Medical History Past Medical History: No Reported History Additional Past Medical History / Comment(s): Fracture of left humerus History of Any Multi-Drug Resistant Organisms: None Reported Past Surgical History: Hysterectomy Additional Past Surgical History / Comment(s): wisdom teeth removed Past Anesthesia/Blood Transfusion Reactions: No Reported Reaction Past Psychological History: Depression Smoking Status: Former smoker Past Alcohol Use History: Daily, Heavy Additional Past Alcohol Use History / Comment(s): 5 cigs/day for 30 yrs. Past Drug Use History: None Reported - Past Family History Mother Family Medical History: No Reported History Additional Family Medical History / Comment(s): Stroke Medications and Allergies Home Medications Medication Instructions Recorded Confirmed Type Citalopram Hydrobromide [CeleXA] 20 mg PO DAILY 09/08/20 09/08/20 History Allergies Allergy/AdvReac Type Severity Reaction Status Date / Time No Known Allergies Allergy Verified 09/08/20 21:50 Physical Exam Vitals: Vital Signs Temp Pulse Pulse Resp BP BP Pulse Ox 09/08/20 20:40 97.8 F 81 16 108/68 99 09/08/20 20:07 97.7 F 83 18 111/79 98 09/08/20 13:52 97.7 F 97 18 111/75 98 Intake and Output 09/08/20 09/08/20 09/09/20 14:59 22:59 06:59 Other: Weight 45.359 kg 44.5 kg Constitutional: No acute distress, cachetic Eyes: Anicteric sclerae, moist conjunctiva, Pupils equal round reactive to light ENMT: NC/AT Oropharynx clear, no erythema, or exudates Neck: Supple, FROM, no masses, or JVD No carotid bruits No thyromegaly Lungs: Clear to auscultation Clear to percussion Normal respiratory effort, no accessory muscle use Cardiovascular: Heart regular in rate and rhythm, No murmurs, gallops, or rubs No peripheral edema Abdominal: Soft tenderness over the epigastric , RUQ and LUQ to deep palpation no guarding, rebound or rigidity Abdomen moving with respiration Normoactive bowel sounds No hepatomegaly, No splenomegaly No palpable mass No abdominal wall hernia noted Skin: Normal temperature, tone, texture, turgor No induration No subcutaneous nodules No rash, lesions No ulcers Extremities: No digital cyanosis No clubbing Pedal pulses intact and symmetrical Radial pulses intact and symmetrical No calf tenderness Psychiatric: Alert and oriented to person, place depressed affect, avoids eye contact Neuro Muscles Strength -4/5 in all 4 extremities Sensation to light touch grossly present throughout Cranial nerves II-XII grossly intact No focal sensory deficits Lymphatics: no palpable cervical or supraclavicular , or inguinal lymph nodes Results CBC & Chem 7: 09/08/20 15:19 09/08/20 15:19 Labs: Abnormal Lab Results - Last 24 Hours (Table) 09/08/20 Range/Units 15:19 Chloride 97 L (98-107) mmol/L Carbon Dioxide 20 L (22-30) mmol/L BUN 20 H (7-17) mg/dL Calcium 10.4 H (8.4-10.2) mg/dL Assessment and Plan Assessment: severe protein calorie malnutrition with failure to thrive in adult dysphagia dyspepsia depression I would suggest psych evaluation first , patient known to have severe depression and suicidal ideation most likely her symptoms are related to her severe depression , i doubt there is underlying pathology palpable left submental lymphnode, tender, most likely reactive to dental condition , patient should have dental evaluation and US of the neck could be offered to better assess her LN. if this gets larger or persists for more than 2-3 weeks, then biopsy should be considered , however from my exam and evaluation , its most likely reactive to inflammatory process most likely related to her dental health however if psych wish to rule out any underlying pathology that could be truely causing dysphagia and epigastric pain I would suggest starting with video swallow eval, then EGD I added PPI BID for dyspepsia regardless wether testing requested for inpatient vs outpatient we should closely monitor for refeeding syndrome daily PO4, Mg , K , Ca, Na, should be monitored and replaced as needed especially for Po4 and Mg check TSH
[2020-09-09 07:18] LABS: Basophils % (A) 1 %; Eosinophils # (A) 0.1 k/uL (0-0.7); Eosinophils % (A) 1 %; HCT 38.6 % (34.0-46.0); Lymphocytes % (A) 19 %; MCH 31.4 pg (25.0-35.0); MCHC 33.7 g/dL (31.0-37.0); MCV 93.1 fL (80.0-100.0); Monocytes # (A) 0.3 k/uL (0-1.0); Monocytes % (A) 6 %; Neutrophils % (A) 72 %; Platelet Count 209 k/uL (150-450); RBC 4.15 m/uL (3.80-5.40); RDW 11.9 % (11.5-15.5); WBC 5.5 k/uL (3.8-10.6)
[2020-09-09 07:29] LABS: ALT 23 U/L (4-34); AST 28 U/L (14-36); African American GFR (CKD) >90 (>60 ml/min/1.73 sqM); Albumin 3.9 g/dL (3.5-5.0); Alkaline Phosphatase 54 U/L (38-126); Blood Urea Nitrogen 13 mg/dL (7-17); Carbon Dioxide 17 mmol/L (22-30); Cholesterol 200 mg/dL (<200); Glucose 61 mg/dL (74-99); Non-African American GFR(CKD) >90 (>60 ml/min/1.73 sqM); Total Bilirubin 1.3 mg/dL (0.2-1.3); Total Protein 6.3 g/dL (6.3-8.2)
[2020-09-09 07:45] LABS: Anion Gap 16 mmol/L; Chloride 103 mmol/L (98-107); HDL Cholesterol 44 mg/dL (40-60); LDL Cholesterol,Calculated 129 mg/dL (0-99); Magnesium 1.8 mg/dL (1.6-2.3); Phosphorus 3.7 mg/dL (2.5-4.5); Potassium 3.7 mmol/L (3.5-5.1); Sodium 136 mmol/L (137-145); Triglycerides 133 mg/dL (<150)
[2020-09-09] MEDS ORDERED: INFLUENZA VACCINE (6 MOS+) 60 MCG/0.5 ML SYRINGE IM ONE (09:00)
[2020-09-09 09:46] LABS: Glucose,Whole Blood 166 mg/dL (75-99)
[2020-09-09] MEDS: MULTIVITAMINS, THERA 1 EACH TAB PO SCH (10:13)
[2020-09-09] MEDS: THIAMINE 100 MG TAB PO SCH (10:13)
[2020-09-09] MEDS: PANTOPRAZOLE 40 MG TABLET PO SCH ×2 (10:13→18:22)
[2020-09-09 10:27] VITALS: BMI 16.8
--- NOTE | 2020-09-09 11:35 | P.HP ---
Psychiatric H&P - . H&P Date: 09/09/20 History & Physical: Allergies Allergy/AdvReac Type Severity Reaction Status Date / Time No Known Allergies Allergy Verified 09/08/20 21:50 Vital Signs Temp 97.2 F L 09/09/20 08:55 Pulse 94 09/09/20 08:55 Resp 20 09/09/20 08:55 BP 115/66 09/09/20 08:55 Pulse Ox 95 09/09/20 04:40 Intake & Output 09/08/20 09/09/20 09/09/20 18:59 06:59 18:59 Weight 45.359 kg 44.5 kg 44.5 kg Laboratory Last Values WBC 5.5 k/uL (3.8-10.6) 09/09/20 06:34 RBC 4.15 m/uL (3.80-5.40) 09/09/20 06:34 Hgb 13.0 gm/dL (11.4-16.0) 09/09/20 06:34 Hct 38.6 % (34.0-46.0) 09/09/20 06:34 MCV 93.1 fL (80.0-100.0) 09/09/20 06:34 MCH 31.4 pg (25.0-35.0) 09/09/20 06:34 MCHC 33.7 g/dL (31.0-37.0) 09/09/20 06:34 RDW 11.9 % (11.5-15.5) 09/09/20 06:34 Plt Count 209 k/uL (150-450) 09/09/20 06:34 MPV 8.0 09/09/20 06:34 Neutrophils % 72 % 09/09/20 06:34 Lymphocytes % 19 % 09/09/20 06:34 Monocytes % 6 % 09/09/20 06:34 Eosinophils % 1 % 09/09/20 06:34 Basophils % 1 % 09/09/20 06:34 Neutrophils # 4.0 k/uL (1.3-7.7) 09/09/20 06:34 Lymphocytes # 1.0 k/uL (1.0-4.8) 09/09/20 06:34 Monocytes # 0.3 k/uL (0-1.0) 09/09/20 06:34 Eosinophils # 0.1 k/uL (0-0.7) 09/09/20 06:34 Basophils # 0.0 k/uL (0-0.2) 09/09/20 06:34 Sodium 136 mmol/L (137-145) L 09/09/20 06:34 Potassium 3.7 mmol/L (3.5-5.1) 09/09/20 06:34 Chloride 103 mmol/L (98-107) 09/09/20 06:34 Carbon Dioxide 17 mmol/L (22-30) L 09/09/20 06:34 Anion Gap 16 mmol/L 09/09/20 06:34 BUN 13 mg/dL (7-17) 09/09/20 06:34 Creatinine 0.60 mg/dL (0.52-1.04) 09/09/20 06:34 Est GFR (CKD-EPI)AfAm >90 (>60 ml/min/1.73 sqM) 09/09/20 06:34 Est GFR (CKD-EPI)NonAf >90 (>60 ml/min/1.73 sqM) 09/09/20 06:34 Glucose 61 mg/dL (74-99) L 09/09/20 06:34 POC Glucose (mg/dL) 166 mg/dL (75-99) H 09/09/20 09:44 POC Glu Manager Critical Care Unit ID Savanah Martins 09/09/20 09:44 Calcium 9.0 mg/dL (8.4-10.2) 09/09/20 06:34 Phosphorus 3.7 mg/dL (2.5-4.5) 09/09/20 06:34 Magnesium 1.8 mg/dL (1.6-2.3) 09/09/20 06:34 Total Bilirubin 1.3 mg/dL (0.2-1.3) 09/09/20 06:34 AST 28 U/L (14-36) 09/09/20 06:34 ALT 23 U/L (4-34) 09/09/20 06:34 Alkaline Phosphatase 54 U/L (38-126) 09/09/20 06:34 Total Protein 6.3 g/dL (6.3-8.2) 09/09/20 06:34 Albumin 3.9 g/dL (3.5-5.0) 09/09/20 06:34 Triglycerides 133 mg/dL (<150) 09/09/20 06:34 Cholesterol 200 mg/dL (<200) H 09/09/20 06:34 LDL Cholesterol, Calc 129 mg/dL (0-99) H 09/09/20 06:34 HDL Cholesterol 44 mg/dL (40-60) 09/09/20 06:34 Lipase 154 U/L (23-300) 09/08/20 15:19 TSH 0.559 mIU/L (0.465-4.680) 09/09/20 06:34 09/09/20 11:22 IDENTIFYING DATA: Patient is a , unemployed, female was recently admitted on [facility] [place] depression this past june, who is currently admitted for depression. HPI: Patient presented to the hospital on 09/08/2020 brought in by her for constipation. The patient has not been eating well over the past week. She reports only drinking water. She denies any nausea or vomiting. Patient reports that for about a week and a half, she has been feeling like she is "clogged up." She reports that she has not been able to have a bowel movement. She does report that during this time, that she has not been eating well or d rinking well. She does endorse elevated anxiety and depression symptoms. She reports that she feels like everything is "stressing me out." She reports that she is worried about what will happen in the future. She states that she is worried about everything, her health, as well as the state of the world. She further endorses that she has low energy. She is denying any suicidal or homicidal ideation, intention,'s and/or plan. She does report anhedonia and low mood. She is. See prescribe Cymbalta during her last inpatient psychiatric admission here on [facility] past June. She reports that she did not feel better when she was discharged. She is not reporting any auditory or visual hallucinations, but review of the patient's chart reveals that she endorsed hearing some noises that she cannot explain at home to the medical doctor. She is not reporting any paranoia. She does report somatic concerns regarding her constipation as well as feeling like she is choked up when she is ingesting any solid foods. She also reports that she feels that way when she is eating something such as yogurt or Jell-O. As per review of the patient's chart, during her last inpatient psychiatric admission, the patient had been experiencing hallucinations and paranoia as well as suicidal ideation with plans to slit her wrist. Patient does admit to cutting her wrist this past May. She does report that she has not had any psychiatric pathology prior to this past May. She states that she did have a fall where she hit her head and was unconscious this past May. 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 PAST PSYCHIATRIC HISTORY: Patient states that she has been diagnosed with depression but is questioning her diagnosis at this time. She has one prior inpatient psychiatric admission this past June. Previous medications include Cymbalta and melatonin which she is currently not taking. She follows up with her primary care physician the outpatient setting. She reports one prior attempt at suicide by cutting her wrists this past May. PMH: No reported medical history ALLERGIES: NO KNOWN DRUG ALLERGIES CHEMICAL DEPENDENCY HISTORY: Patient reports a history of heavy alcohol use. She states that she stop drinking this past June. She denies any tobacco or illicit drug use. She denies any marijuana use. FAMILY PSYCHIATRIC/SUBSTANCE USE HISTORY: Or snow significant family history of mental illness. SOCIAL HISTORY: Patient has an associates degree in and was employed until this past May. She is currently with her of 31 years. Also living in the home is her middle son. She has 3 children. She lives in a house. She has a dog and a cat. She reports no legal or history. MENTAL STATUS EXAM: General Appearance: Patient appears to be stated age is alert, directable, and attempts to cooperate. Patient appears to have fair hygiene and grooming. Patient is a very thin and cachectic build. Behavior: Patient is seated without any agitated behavior. Eye contact is intermittent. Psychomotor retardation is evident. Speech: Patient's speech is nonspontaneous, minimal, low in volume, monotone. Mood/Affect: Patient reports their mood is very nervous, affect is congruent, depressed, and blunted. Suicidality/Homicidality: Patient denies having any homicidal ideation intent o r plan. Denies any suicidal ideations intent or plan Perceptions: Patient denies any visual hallucinations and denies any auditory hallucinations Though content/process: There is no evidence of any delusional thought content and thought process is linear and goal-directed. Memory and concentration: AOX3, grossly intact for the purposes of this session. Can spell "WORLD" backwards Judgment and insight: Poor STRENGTHS/WEAKNESSES: strength is that patient is has stable housing, supportive family, stable income. Weakness is that patient has been losing significant weight and is quite likely malnourished which may contribute to worsening psychiatric presentation. INTELLECT: average IMPRESSIONS: Major depressive disorder, recurrent, severe Generalized anxiety disorder PLAN: -Patient is admitted under voluntary status to [facility] for stabilization of psychiatric symptoms and safety. Patient signed adult voluntary form and medication consent and is placed in patient's chart. -Medications : Will start patient on Zyprexa Zydis 5 mg by mouth daily at bedtime to address somatic delusions and augment antidepressant. Remeron 15 mg by mouth daily at bedtime for depression/anxiety/appetite stimulation -Vistaril PRN for anxiety. -Recommend medical workup for possible dysphagia -Patient was informed of the risks, benefits and side effects of the medication and patient verbally consented to taking the medications. -Internal Medicine consult to perform medical evaluation and physical. -NRT - nicotine patch -SW on board for discharge planning. Encourage patient to participate in groups to work on coping skills.
[2020-09-09 13:12] LABS: Hemoglobin A1C 5.4 % (4.0-6.0)
[2020-09-09] MEDS ORDERED: OLANZapine ODT 5 MG TAB PO SCH (21:00)
[2020-09-09] MEDS ORDERED: MIRTAZAPINE 15 MG TAB PO SCH (21:00)
[2020-09-10] MEDS ORDERED: SODIUM CHLORIDE 0.9% 1,000 ML IV ONE (06:45)
[2020-09-10 08:11] LABS: African American GFR (CKD) >90 (>60 ml/min/1.73 sqM); Anion Gap 7 mmol/L; Blood Urea Nitrogen 10 mg/dL (7-17); Calcium 9.1 mg/dL (8.4-10.2); Carbon Dioxide 29 mmol/L (22-30); Chloride 100 mmol/L (98-107); Glucose 130 mg/dL (74-99); Magnesium 1.7 mg/dL (1.6-2.3); Non-African American GFR(CKD) >90 (>60 ml/min/1.73 sqM); Phosphorus 2.9 mg/dL (2.5-4.5); Potassium 3.3 mmol/L (3.5-5.1); Sodium 136 mmol/L (137-145)
[2020-09-10 08:21] VITALS: RESP 16
--- NOTE | 2020-09-10 08:24 | CT ---
EXAMINATION TYPE: CT soft tissue neck wo/w con DATE OF EXAM: 09/10/2020 COMPARISON: None HISTORY: Lt sided neck swelling CT DLP: 544.4 mGycm CONTRAST: CT scan of the neck is performed without and with IV Contrast, patient injected with 100 mL of Isovue 300. Contrast enhanced CT of the neck was performed from the skull base through the lung apices. AIRWAY: The supraglottic, glottic, and subglottic portions of the airway appear patent and free of mass. Calcifications of the tonsillar pillars noted bilaterally may reflect prior infection. SALIVARY GLANDS: There is edema of the left parotid gland and enlargement with craniocaudal measureme nt of 5.4 cm on the left versus 4.5 cm on the right. Small lesion of decreased attenuation noted khadijah uring 4.5 mm. Additional smaller lesions noted within the deep lobe of the parotid gland. 4 mm. Right parotid gland has a normal appearance. Submandibular glands are within normal limits. THYROID GLAND: Bilateral thyroid nodules most of which appear to be cystic although a few. A mixed i n overall echo appearance measuring up to 1.2 cm. Correlate with ultrasound. LYMPH NODES: No adenopathy seen greater than 1cm. LUNG APICES: No nodule or mass is seen. OTHER: Vascular structures are patent. No significant degenerative change of the cervical spine. N o abscess seen. IMPRESSION: 1. Edema and heterogenous enhancement of the left parotid gland may reflect underlying changes of par otitis. Small lesions as noted may reflect the parotid cysts of. Lesion of other etiology not exclude d. 2. Thyroid cystic lesions as well as mixed thyroid lesions are nonspecific. Correlate with ultrasound . 3. Calcifications of the tonsillar pillars may reflect chronic infection.
[2020-09-10] MEDS ORDERED: AMOXIC-POT CLAV 875-125MG 1 EACH TAB PO SCH (11:00)
--- NOTE | 2020-09-10 11:04 | P.PN ---
Subjective Progress Note Date: 09/10/20 I was asked to see the patient for worsening swelling of her left face. Patient was admitted with severe depression and suicidal thoughts. She's been having weight loss over the last several month. When I saw her, patient is slow to response. She appeared depressed. She denies having any difficulty chewing or swallowing. She denies odynophagia. She has an obvious swelling of the left mandibular area with some tenderness. She has poor dentition as well. Computed tomography scan showed evidence of parotitis. No fevers or chills. No leukocytosis. Patient appears slightly dehydrated but mucous membrane are moist Objective - Vital Signs Vital signs: Vital Signs Temp 98.5 F 09/10/20 06:05 Pulse 93 09/10/20 06:41 Resp 16 09/10/20 06:41 BP 102/59 09/10/20 06:41 Pulse Ox 94 L 09/10/20 05:50 Intake & Output 09/09/20 09/10/20 09/10/20 18:59 06:59 18:59 Intake Total 1000 Balance 1000 Weight 44.5 kg Intake: IV 1000 Invasive Line 1 1000 - Exam General: The patient is awake and alert, in no distress Eye: there is normal conjunctiva bilaterally. Neck: The neck is supple, there is no JVD. Cardiovascular: Normal S1-S2, no S3-S4, no murmurs. Respiratory: Lungs clear to auscultation bilaterally Gastrointestinal: Abdomen is soft, nontender Musculoskeletal: There is no pedal edema. Neurological:. Speech is normal. Skin: Skin is warm and dry - Labs CBC & Chem 7: 09/09/20 06:34 09/10/20 07:16 Labs: Abnormal Lab Results - Last 24 Hours (Table) 09/10/20 Range/Units 07:16 Sodium 136 L (137-145) mmol/L Potassium 3.3 L (3.5-5.1) mmol/L Glucose 130 H (74-99) mg/dL Assessment and Plan Assessment: Patient is currently admitted to the psych unit with suicidal thoughts and severe depression. I was asked to see her for worsening swelling of the left f isabel. Patient has evidence of acute on chronic left parotitis. I reviewed her computed tomography scan. I recommend starting Augmentin twice daily for 7 days course. Intermittent icing and gentle massage. Encouraged aggressive oral hydration. Follow up clinical course. If not showing signs of improvement would admit to the medical floor for IV antibiotic. Please call back with any questions.
--- NOTE | 2020-09-10 11:11 | P.PN ---
Progress Note - Text Progress Note Date: 09/10/20 Clinical Problems: Unexplained weight loss, major depressive disorder severe, rule out major depressive disorder severe with psychotic features, mild cognitive impairment Interim history: I reviewed the medical record, interviewed the patient and discussed her treatment and treatment plan during team meeting. She is a 59-year-old female who presented to the unit with complaints of inability to eat and chronic constipation. She is known to the unit from a prior admission in June when she was diagnosed with a major depressive disorder. Since her last admission she has lost an additional 10 kg. She alleges that she is unable to eat solid foods. She is not able to eat because she believes he has an intestinal blockage where she does not have a bowel movement for "several weeks." A KUB at the emergency room was negative for fecal impaction. During our interview she perseverated about her inability to have a bowel movement. She feels that she is wasting away. She recognizes her weight loss but feels she cannot eat solid foods to gain weight. She did not express clear psychotic symptoms such as hallucinations, paranoia or delusional thoughts. She expressed some feelings of hopelessness and helplessness. She feels generally frightened but did not express paranoid thoughts or delusional beliefs. Medical consultation appreciated. She experienced a fall this morning. Her blood pressure was 67/46. She received 1 L of normal saline. Computed dez ography scan of the head and neck showed edema and heterogenous and heterogenous enlargement of the left paranoid gland, thyroid cystic lesions and calcifications of the tonsillar pillars. There is no evidence of adenopathy or lung nodule or masses. Mental status exam: She presented as a emaciated appearing elderly woman who looked disheveled and unkempt. She had marked psychomotor slowing. She made eye contact and attended to the interview. She had a depressed and unreactive facial expression. Her speech was nonspontaneous and had decreased rate, rhythm and volume. Her affect was depressed and unreactive. She denied suicidal ideation, wishes or homicidal ideation. She expressed such depressive cognitions as hopelessness, helplessness and worthlessness. She did not express clear ideas reference or paranoid ideation. She did not express delusions. She has overvalued ideas about bodily dysfunction. Her thinking was slow but organized and goal directed. She did not express neologisms or blocking. She denied hallucinations did not appear to be responding to internal stimuli. [facility] the [facility]. Her total score is 24/30; a score of less than 26 is consistent with a cognitive impairment. She showed impairments with visual spatial/executive functioning, naming and verbal fluency. She showed no impairments in attention attention, concentration, delayed recall or orientation. Assessment: She is middle aged woman who presents with marked psychomotor slowing and a significant weight loss since her last admission in June. She has signs and symptoms of major depression that may be complicated by an underlying psychosis. However, we would need to rule out a physiological explanation for her profound weight loss. Plan: Continue inpatient treatment. Reconsult medicine regarding transfer to the medicine unit for evaluation of her weight loss. One-to-one supervision to prevent falls. Continue Remeron 15 mg at bedtime and Zyprexa 5 mg at bedtime. Monitor I and O. encourage participation in therapeutic groups and activities as tolerated. Evaluate clinical status response to treatment daily basis.
[2020-09-10 11:23] VITALS: BP 105/64; PULSE 110; TEMP 98.1
--- NOTE | 2020-09-10 12:26 | FL ---
Modified barium swallow. HISTORY: Dysphagia. Modified barium swallow was performed with the department of speech pathology. The patient was prese nted with various consistencies of barium. There is no evidence for aspiration or penetration. Full report is to follow from the department of speech pathology. Impression: Normal study.
[2020-09-10] MEDS ORDERED: predniSONE 20 MG TAB PO SCH (12:30)
[2020-09-10] MEDS: PANTOPRAZOLE 40 MG TABLET PO SCH (13:37)
[2020-09-10] MEDS: THIAMINE 100 MG TAB PO SCH (13:37)
[2020-09-10] MEDS: MULTIVITAMINS, THERA 1 EACH TAB PO SCH (13:38)
== END 2020-09-10 17:15 | disposition short-term general hospital (02) | DRG 885 ==
LOC: EC 13:08 → 3MHU 19:48
PROVIDERS: ADMIT Psychiatry & Neurology Psychiatry; ATTEND Psychiatry & Neurology Psychiatry
DX: F33.3 Major depressive disorder, recurrent, severe with psychotic symptoms (principal); E43 Unspecified severe protein-calorie malnutrition; R45.851 Suicidal ideations; Z68.1 Body mass index [BMI] 19.9 or less, adult; R62.7 Adult failure to thrive; F22 Delusional disorders; F41.1 Generalized anxiety disorder; K59.09 Other constipation; R13.10 Dysphagia, unspecified; R10.13 Epigastric pain; K11.21 Acute sialoadenitis; E86.0 Dehydration; Z79.899 Other long term (current) drug therapy; Z87.81 Personal history of (healed) traumatic fracture; Z90.710 Acquired absence of both cervix and uterus; Z98.890 Other specified postprocedural states; Z87.891 Personal history of nicotine dependence; Z56.0 Unemployment, unspecified; Z91.5 Personal history of self-harm; Z82.3 Family history of stroke
CPT/HCPCS: 36415; 70492; 74018; 74230; 80048; 80053; 80061; 82075; 83036; 83690; 83735; 84100; 84443; 85025; 90686; 96360; 99285

== ENCOUNTER 2020-09-10 16:23 | Inpatient (IN) | payer BC ==
[2020-09-10] MEDS ORDERED: ONDANSETRON 4 MG/2 ML VIAL IVP PRN (19:11)
[2020-09-10] MEDS ORDERED: NALOXONE 0.4 MG/ML 1 ML VIAL IV PRN (19:11)
[2020-09-10] MEDS ORDERED: ACETAMINOPHEN TAB 325 MG TAB PO PRN (19:11)
[2020-09-10] MEDS: SODIUM CHLORIDE 0.9% 1,000 ML IV SCH (20:10)
[2020-09-10] MEDS ORDERED: IBUPROFEN 400 MG TAB PO PRN (20:43)
[2020-09-10] MEDS ORDERED: OLANZapine 5 MG TAB PO SCH (21:00)
--- NOTE | 2020-09-10 21:01 | P.HPIM ---
History of Present Illness H&P Date: 09/10/20 Chief Complaint: left parotid gland swelling 59 year old female with major depression and suicidal ideation patient was initially seen on the mental health unit admitted on Sep 08 . during physical exam she was found to have small rubbery tender submental mass thought to be submandibular LN at the time. patient was seen for failure to thrive. on the morning of Sep 10 , she had a fall in the bathroom and was found to have positive orthostatic hypotension . upon physical exam , she was found to have left sided face mass. stat CT of the neck showed enlarged parotid gland . patient was transferred to [facility] for further treatment patient afebrile , denies any odynophagia, she was complaining of dysphagia upon admission described as food get stuck in the middle of her chest and stomach, a video swallow eval showed no abnormalities. patient remained afebrile during her hospital stay, no trouble managing her oral secretions, or swallowing liquids, poor PO intake due to poor appetite. and no difficulties with breathing patient was also being managed by psych for severe major depression and suicidal ideation . patient does not provide any other meaningful history , but she reports no history of parotid gland enlargement , and she has not noticed this enlarged gland until I brought it to her attention upon presentation to the hospital patient does admit to significant unintentional weight loss, however, admits to poor PO intake Review of Systems ROS unobtainable: due to mental status Past Medical History Past Medical History: No Reported History Additional Past Medical History / Comment(s): Fracture of left humerus History of Any Multi-Drug Resistant Organisms: None Reported Past Surgical History: Hysterectomy Additional Past Surgical History / Comment(s): wisdom teeth removed Past Anesthesia/Blood Transfusion Reactions: No Reported Reaction Past Psychological History: Depression Smoking Status: Former smoker Past Alcohol Use History: Daily, Heavy Additional Past Alcohol Use History / Comment(s): 5 cigs/day for 30 yrs. Past Drug Use History: None Reported - Past Family History Mother Family Medical History: No Reported History Additional Family Medical History / Comment(s): Stroke Medications and Allergies Home Medications Medication Instructions Recorded Confirmed Type Citalopram Hydrobromide [CeleXA] 20 mg PO DAILY 09/08/20 09/08/20 History Allergies Allergy/AdvReac Type Severity Reaction Status Date / Time No Known Allergies Allergy Verified 11/14/20 21:50 Physical Exam Vitals: Intake and Output 09/10/20 09/10/20 09/10/20 06:59 14:59 22:59 Other: Weight 44.5 kg Constitutional: No acute distress, withdrawn , avoids eye contact Eyes: Anicteric sclerae, moist conjunctiva, Pupils equal round reactive to light ENMT: NC/AT, limited range of motion of her jaw due to left TMJ pain Oropharynx clear, no erythema, no exudates enlarged mass over the left side of the face, covering the mandible , tender to palpation , warm to the touch , no erythema , massaging the parotid gland expressed clear saliva, no pus Neck: Supple, FROM, no masses, or JVD No carotid bruits No thyromegaly Lungs: Clear to auscultation Clear to percussion Normal respiratory effort, no accessory muscle use Cardiovascular: Heart regular in rate and rhythm, No murmurs, gallops, or rubs No peripheral edema Abdominal: Soft Nontender, no guarding, rebound or rigidity Abdomen moving with respiration Normoactive bowel sounds No hepatomegaly, No splenomegaly No palpable mass No abdominal wall hernia noted Skin: Normal temperature, tone, texture, turgor No induration No subcutaneous nodules No rash, lesions No ulcers Extremities: No digital cyanosis No clubbing Pedal pulses intact and symmetrical Radial pulses intact and symmetrical No calf tenderness Psychiatric: Alert and oriented to person, place depressed affect Neuro Muscles Strength 4/5 in all 4 extremities Sensation to light touch grossly present throughout Cranial nerves II-XII grossly intact No focal sensory deficits Lymphatics: no palpable cervical or supraclavicular , or inguinal lymph nodes Assessment and Plan Assessment: acute parotitis , rule out bacterial vs viral , possibility of rare side effect of Olanzapine , vs complications of severe dehydration and Poor PO intake check blood culture salivary gland culture obtained , no pus was seen , just watery saliva monitor vital sings tylenol for fever full liquid diet IVF hydration advil for pain IV antibiotics UNASYN 3gm Q6hr CT of the neck reviewed video swallow eval , no acute pathology major depression and suicidal ideation mangemeent per psych continue remeron Hold zyprexa due to orthostatic hypotension , and possible side effect of parotitis (very rare side effect) psych consultation failure to thrive in adult significant weight loss severe protein calorie malnutrition encourage PO intake avoid refeeding syndrome, check daily PO4, Mg, K Preformed a thorough record review from recent hospitalization hospital course inthe mental health unit CODE STATUS: full code DVT prophylaxis: heparin sc tid Discussed with: Patient, ER, RN Anticipated length of stay < than [address]: pending psych eval A total of 75 minutes was spent on the care of this complex patient more than 50% of the time was spent in counseling and care coordination.
[2020-09-10] MEDS: PANTOPRAZOLE 40 MG TABLET PO SCH (21:14)
[2020-09-10] MEDS: SENNOSIDES-DOCUSATE SODIUM 1 EACH TAB PO SCH (21:15)
[2020-09-10] MEDS: AMPICILLIN-SULBACTAM 3 GM in SODIUM CHLORIDE 0.9% 100 ML IVPB SCH (21:16)
[2020-09-10] MEDS: MIRTAZAPINE 15 MG TAB PO SCH (21:19)
[2020-09-11] MEDS: HEPARIN SODIUM,PORCINE 5,000 UNIT/ML 1 ML VIAL SQ SCH ×4 (00:09→20:07)
[2020-09-11] MEDS: AMPICILLIN-SULBACTAM 3 GM in SODIUM CHLORIDE 0.9% 100 ML IVPB SCH ×4 (03:28→19:32)
[2020-09-11 04:18] LABS: EBV-EA (IgG) 0.4 AI; EBV-EBNA(IgG) >8.0 AI; EBV-VCA (IgM) <0.2 AI
[2020-09-11 04:45] LABS: HIV 2 AB Non-Reactive (Non-Reactive); HIV AB P24 Non-Reactive (Non-Reactive); HIV P24 AG Non-Reactive (Non-Reactive)
[2020-09-11] MEDS: SODIUM CHLORIDE 0.9% 1,000 ML IV SCH ×3 (05:07→19:33)
[2020-09-11 06:54] LABS: Basophils % (A) 0 %; Eosinophils # (A) 0.1 k/uL (0-0.7); Eosinophils % (A) 0 %; HCT 39.3 % (34.0-46.0); Lymphocytes # (A) 0.7 k/uL (1.0-4.8); Lymphocytes % (A) 5 %; MCH 30.7 pg (25.0-35.0); MCHC 33.1 g/dL (31.0-37.0); MCV 92.7 fL (80.0-100.0); Mean Platelet Volume 8.7; Monocytes # (A) 0.7 k/uL (0-1.0); Monocytes % (A) 5 %; Neutrophils # (A) 12.3 k/uL (1.3-7.7); Neutrophils % (A) 88 %; Platelet Count 205 k/uL (150-450); RBC 4.24 m/uL (3.80-5.40); RDW 12.6 % (11.5-15.5); WBC 13.9 k/uL (3.8-10.6)
[2020-09-11] MEDS: PANTOPRAZOLE 40 MG TABLET PO SCH ×2 (08:37→17:10)
[2020-09-11] MEDS: SENNOSIDES-DOCUSATE SODIUM 1 EACH TAB PO SCH ×2 (08:45→20:07)
[2020-09-11 10:17] LABS: African American GFR (CKD) 123.6 (60.0-200.0); Albumin 3.8 g/dL (3.80-4.90); Albumin/Globulin Ratio 2.11 (1.60-3.17); Anion Gap 10.4 mmol/L (4.00-12.00); Calcium 9.1 mg/dL (8.7-10.3); Carbon Dioxide 27.6 mmol/L (21.6-31.8); Globulin 1.8 g/dL (1.6-3.3); Magnesium 1.8 mg/dL (1.5-2.4); Non-African American GFR(CKD) 106.7 (60.0-200.0); Phosphorus 3.7 mg/dL (2.4-5.1); Potassium 3.4 mmol/L (3.5-5.5); Total Bilirubin 0.9 mg/dL (0.3-1.2); Total Protein 5.6 g/dL (6.2-8.2)
--- NOTE | 2020-09-11 10:31 | P.CN ---
Psychiatric Consult - . Consult date: 09/11/20 Consult:: IDENTIFYING DATA: This patient is a , unemployed, 59-year-old female who is recently admitted on [facility] for major depressive disorder and transferred to the medical floor for failure to thrive. HISTORY OF PRESENT ILLNESS: The patient presented to the hospital initially on 09/08/2020 brought in by her for constipation. Patient was then admitted into the psychiatric unit due to symptoms of depression in the pa tient's ability to care for herself with low PO input for the past 1-[address] of the head and neck revealed no edema and heterogeneous enhancement of the left parotid gland as well as thyroid cystic lesions and nonspecific thyroid lesions. Patient was transferred to the medical unit due to failure to thrive and to rule out any physiological examination for her profound weight loss. Currently the patient is not expressing any suicidal or homicidal ideation, intention, and/or plan. She is not reporting any auditory or visual hallucinations. She reports that she was able to eat a little yogurt this morning along with her apple juice and and Ensure shake. She refused her Remeron yesterday as she was uncertain of the medication that she should be taking. She was informed that we are using Remeron to manage depression/anxiety/lack of appetite instead of her prescribed home medication of Celexa. Zyprexa has been held due to orthostatic hypotension and possible side effect of parotitis. Patient continues to express concern that she has not been able to have a bowel movement but reports that overall her depression and anxiety appear to be slightly improved. PAST PSYCHIATRIC HISTORY: Patient has been previously diagnosed with major depressive disorder. Prior to this most recent psychiatric hospitalization, the patient has also had an admission on 3 she this past June. Previous medications include Cymbalta, Celexa, and melatonin. She follows up with her primary care physician the outpatient setting. One prior suicide attempt this past May by cutting her wrists. PAST MEDICAL HISTORY: No reported medical history. ALLERGIES: NO KNOWN DRUG ALLERGIES CHEMICAL DEPENDENCY HISTORY: Patient reports a history of heavy alcohol use. She reportedly stopped consuming any alcohol this past June. She denies any tobacco, marijuana, or illicit drug use. FAMILY PSYCHIATRIC/SUBSTANCE USE HISTORY: denies SOCIAL HISTORY: Patient is currently with her current for 31 years. Present in her home is her and her son. She has 3 children. She lives in a house. She reports no legal or history. She has an Associates degree in [employer] and has been unemployed since this past May. MENTAL STATUS EXAM: General Appearance: Patient appears to be stated age is alert, pleasant, and cooperative. Patient appears to have fair hygiene and grooming wearing hospital gown with fair eye contact. Behavior: Patient is calmly lying in bed without any agitated behavior. Psychomotor activity is slow but improved from initial psychiatric evaluation. Speech: Patient's speech is fluent and nonpressured. Mood/Affect: Patient reports their mood is "okay", affect is blunted but range of affect is slightly increased from initial psychiatric evaluation. Suicidality/Homicidality: Patient denies having any suicidal or homicidal ideation intent or plan. Perceptions: Patient denies any visual hallucinations and denies any auditory hallucinations Though content/process: Patient continues to be fixated on her inability to pass her bowels. Memory and concentration: AOX3, grossly intact for the purposes of this session. 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 Encouraged patient to take Remeron tonight. Patient is in agreement and reports that she will try the medication tonight. -Psychiatry will continue to follow along. 09/11/20 10:31
[2020-09-11] MEDS ORDERED: DEXAMETHASONE SOD PHOSPHATE 4 MG/ML 1 ML VIAL IV SCH (12:00)
[2020-09-11 13:43] VITALS: BMI 16.8
[2020-09-11] MEDS ORDERED: WATER IV SCH ×2 (14:15)
[2020-09-11] MEDS ORDERED: DEXTROSE 5% IV SCH ×2 (14:15)
[2020-09-11] MEDS ORDERED: DEXAMETHASONE SOD PHOSPHATE IV SCH ×2 (14:15)
--- NOTE | 2020-09-11 15:34 | P.PN ---
Subjective Progress Note Date: 09/11/20 Patient is admitted as well as worsening today. She denies any fevers or chills. No difficulty chewing or swallowing. No difficulty breathing. Objective - Vital Signs Vital signs: Vital Signs Temp 99.4 F 09/11/20 12:13 Pulse 96 09/11/20 12:13 Resp 15 09/11/20 12:13 BP 102/70 09/11/20 12:13 Pulse Ox 97 09/11/20 12:13 Intake & Output 09/10/20 09/11/20 09/11/20 18:59 06:59 18:59 Intake Total 2150 480 Balance 2150 480 Weight 44.5 kg 44.5 kg 44.5 kg Intake: Intake, IV Titration 1200 Amount Ampicillin-Sulbactam 3 gm 200 In Sodium Chloride 0.9% 100 ml @ 200 mls/hr IVPB Q6H [facility] Rx#:[id number] Sodium Chloride 0.9% 1, 1000 000 ml @ 100 mls/hr IV . Q10H [facility] Rx#:[id number] Oral 950 480 Other: Voiding Method Toilet # Voids 2 1 - Exam General: The patient is awake and alert, in no distress there is significant swelling of the left parotid gland extending to the need the left submandibular area. No palpable lymphadenopathy. Eye: there is normal conjunctiva bilaterally. Neck: The neck is supple, there is no JVD. Cardiovascular: Normal S1-S2, no S3-S4, no murmurs. Respiratory: Lungs clear to auscultation bilaterally Gastrointestinal: Abdomen is soft, nontender Musculoskeletal: There is no pedal edema. Neurological:. Speech is normal. Skin: Skin is warm and dry - Labs CBC & Chem 7: 09/11/20 06:18 09/11/20 06:18 Labs: Abnormal Lab Results - Last 24 Hours (Table) 09/10/20 09/11/20 09/11/20 Range/Units 20:38 06:18 06:18 WBC 13.9 H (3.8-10.6) k/uL Neutrophils # 12.3 H (1.3-7.7) k/uL Lymphocytes # 0.7 L (1.0-4.8) k/uL Potassium 3.4 L (3.5-5.5) mmol/L BUN 7.0 L (9.0-27.0) mg/dL Creatinine 0.5 L (0.6-1.5) mg/dL Total Protein 5.6 L (6.2-8.2) g/dL EBV Capsid Ag IgG Intrp POSITIVE A (NEGATIVE) EBV Nuc Ag IgG Interp POSITIVE A (NEGATIVE) Microbiology - Last 24 Hours (Table) 09/10/20 22:32 Gram Stain - Preliminary Mouth Wound Culture - Preliminary Assessment and Plan Assessment: 1. Acute left parotitis: Seen and evaluated by ENT. Continue aggressive IV fluid hydration. IV antibiotic with Unasyn. IV Decadron ordered. 2. Sepsis without septic shock 3. Underlying depression with history of suicidal thoughts: Psychiatry following closely 4. DVT prophylaxis with subcu heparin
[2020-09-11] MEDS: DEXAMETHASONE SOD PHOSPHATE 10 MG/ML 1 ML VIAL IV SCH ×2 (16:25→23:54)
[2020-09-11] MEDS ORDERED: bisacodyL 5 MG TABLET.DR PO STA (16:47)
--- NOTE | 2020-09-11 19:24 | CONS ---
CONSULTATION DATE OF CONSULTATION: 09/11/2020. REASON FOR CONSULTATION: Left parotitis. CONSULTING PHYSICIAN: Otto Stevenson MD. HISTORY OF PRESENT ILLNESS: Patient is a pleasant 59-year-old female who has had multiple admissions to [facility] mainly for treatment of psychiatric disorders including a major depressive disorder. She is usually on the mental health floor and was transferred to a medical unit because of a failure to thrive. The patient states that she is chronically depressed and that she has lost her appetite and eats only very small amounts of liquids including Ensure and soup. In addition, she states that she drinks very small amounts of fluids. She subsequently developed swelling on 09/10/2020, of the left side of her face. A CT scan of the head and neck revealed that there was evidence of edema with heterogeneous enhancement of the left parotid gland. She was started on IV Unasyn antibiotic and also she was given several doses of steroids. It has been less than 24 hours since her treatment and therefore there was not any significant improvement in the swelling of the face. At this time, the patient is complaining of having significant tenderness on the left side of her face, but no difficulty opening her mouth or swallowing. PAST MEDICAL HISTORY: Past medical history reveals she has no known allergies to medications. MEDICATIONS: Her only home medication was Celexa. She has history of heavy alcohol use, but denies current use of any marijuana or tobacco products. REVIEW OF SYSTEMS: Cardiovascular is negative. Respiratory is negative. Gastrointestinal and the remainder of the review of systems is essentially unremarkable. PHYSICAL EXAMINATION: This patient is a pleasant 59-year-old female who appears to have a very flat affect but she is cooperative, and well oriented to time and place. She is a good historian. HEENT examination: Patient is normocephalic. Tympanic membranes are normal. Middle ear space is free of any fluid or infection. Pupils are equal, round, react to light and accommodation. Extraocular movements are within normal limits. Intranasal examination reveals moderate septal deviation with compensatory hypertrophy of the inferior turbinates bilaterally. There is a moderate amount of clear mucus on the mucous membranes and draining down the posterior pharynx. Examination of oropharynx is unremarkable. Palpation of neck is negative for any significant lymphadenopathy. Palpation of the face with attention to the left parotid area reveals that there is brawny edema in the region of the left parotid gland. There are no areas of fluctuance and the gland appears to feel quite firm. I cannot detect any discrete mass which would indicate a possible tumor. The edema and swelling extends back to the angle of the left mandible. The patient denies any pain in her left ear. Cranial nerves 2-12 and the remainder of the head and neck exam is unremarkable. Chest/cardiovascular: Both lung alvarez are clear to percussion and auscultation. The patient is in regular sinus rhythm. S1, S2 are present. No murmurs S3s or S4. ABDOMEN: There is no evidence any masses, megaly or tenderness. The abdomen is soft. The remainder of physical exam is unremarkable. IMPRESSION: Left parotitis, suspect left parotitis secondary to dehydration. PLAN: I do not feel that this patient has any evidence of any abscess or are phlegmon development. I reviewed the CT scan and it shows mainly edema of the soft tissues of the gland and no evidence of any abscess formation or any enlarged lymph nodes within the gland substance itself. I believe that the parotid gland swelling was caused by the patients lack of adequate fluid intake/dehydration. Therefore, I would continue the patient on the Unasyn antibiotic at its present dose. I will change the steroid schedule which should reduce the swelling more rapidly. She will be given dexamethasone 10 mg IV q.8 hours times 3- 3 doses, dexamethasone 5 mg IV q.8 x3 doses, and finally dexamethasone 2 mg q.8 hours x3 doses, then stop. In addition to this, I have suggested to the nursing staff that they increase her IV fluids to at least 150 mL an hour in an effort to hydrate her since she is not drinking any way near the normal amount of fluids that she should be taking in at this time. Generally, with the combination of increased fluids, steroids and even antibiotics this should begin to improve over the next 48-72 hours. I would continue to follow this patient with you. I want to take this opportunity to thank you for allowing me to assist in the care of your patient. If I could be of any further assistance, please feel free to call my office. MMASHLEIGHL / IJN: [id number] / ERIK
[2020-09-11] MEDS: MIRTAZAPINE 15 MG TAB PO SCH (20:07)
[2020-09-12] MEDS: SODIUM CHLORIDE 0.9% 1,000 ML IV SCH ×8 (00:39→18:10)
[2020-09-12] MEDS: AMPICILLIN-SULBACTAM 3 GM in SODIUM CHLORIDE 0.9% 100 ML IVPB SCH ×4 (01:05→19:12)
[2020-09-12 06:22] LABS: Basophils % (A) 0 %; Eosinophils # (A) 0.1 k/uL (0-0.7); Eosinophils % (A) 1 %; HCT 35.8 % (34.0-46.0); HGB 11.9 gm/dL (11.4-16.0); Lymphocytes # (A) 0.5 k/uL (1.0-4.8); Lymphocytes % (A) 4 %; MCH 31.4 pg (25.0-35.0); MCHC 33.2 g/dL (31.0-37.0); MCV 94.5 fL (80.0-100.0); Monocytes # (A) 0.2 k/uL (0-1.0); Monocytes % (A) 2 %; Neutrophils % (A) 93 %; Platelet Count 197 k/uL (150-450); RBC 3.79 m/uL (3.80-5.40); RDW 12.1 % (11.5-15.5); WBC 11.8 k/uL (3.8-10.6)
[2020-09-12] MEDS: SENNOSIDES-DOCUSATE SODIUM 1 EACH TAB PO SCH ×2 (07:43→20:06)
[2020-09-12] MEDS: PANTOPRAZOLE 40 MG TABLET PO SCH ×2 (07:43→17:01)
[2020-09-12] MEDS: DEXAMETHASONE SOD PHOSPHATE 10 MG/ML 1 ML VIAL IV SCH ×3 (07:43→23:00)
[2020-09-12] MEDS: HEPARIN SODIUM,PORCINE 5,000 UNIT/ML 1 ML VIAL SQ SCH ×2 (07:44→20:06)
[2020-09-12 09:24] LABS: African American GFR (CKD) 133.1 (60.0-200.0); Non-African American GFR(CKD) 114.8 (60.0-200.0); Potassium 3.9 mmol/L (3.5-5.5)
--- NOTE | 2020-09-12 11:12 | P.PN ---
Progress Note - Text Progress Note Date: 09/12/20 Identifying Data: This patient is a , unemployed, 59-year-old female who is recently admitted on [facility] for major depressive disorder and transferred to the medical floor for failure to thrive. Interval History: Patient was seen resting in bed comfortably and was directable and agreeable to speak with the gag writer in her room. Patient is endorsing significant symptoms of depression including hopelessness, helplessness, low mood, and anhedonia. She reports that she feels like "nothing is working and nothing will get better." She is unable to verbalize exactly what is the problem, but instead is endorsing significant symptoms of hopelessness saying that "everything is broken." She is currently not reporting any suicidal or homicidal ideation, intention, and/or plan. She is reporting no auditory or visual hallucinations. She has been insurance with her Remeron and reports no side effects at this time. She denied any issues with sleep. Her appetite has been increasing. Mental Status Exam: General Appearance: Patient appears to be stated age is alert, directable, and cooperative. Patient swelling of the parotid gland has gone down significantly. She is wearing hospital gown, and appears to be of thin build. Behavior: Patient is calmly seated without any agitated behavior. Psychomotor activity slightly elevated. Speech: Patient's speech is fluent and nonpressured. Mood/Affect: Mood is "everything is getting worse." affect is congruent, sad, tearful. Suicidality/Homicidality: Patient denies having any suicidal or homicidal ideation intent or plan. Perceptions: Patient denies any visual hallucinations and denies any auditory hallucinations Though content/process: Patient is reporting hopelessness, helplessness, because firm belief that nothing will get better. Memory and concentration: AOX3, grossly intact for the purposes of this session Judgment and insight: Very poor Assessment Major depressive disorder, recurrent, severe Generalized anxiety disorder Plan: -Continue your medical management -When medically stable, recommend that the patient be transferred to the patient's psychiatric unit. -Medications: Increase Remeron to 30 mg by mouth daily at bedtime for depression/appetite stimulation/insomnia Start Abilify 10 mg by mouth daily for depression/delusional thought process -Psychiatry will continue to follow along.
--- NOTE | 2020-09-12 14:40 | P.PN ---
Subjective Progress Note Date: 09/12/20 Principal diagnosis: Patient is doing better today. Swelling is improving. Objective - Vital Signs Vital signs: Vital Signs Temp 98.7 F 09/12/20 11:45 Pulse 90 09/12/20 11:45 Resp 16 09/12/20 11:45 BP 106/73 09/12/20 11:45 Pulse Ox 97 09/12/20 11:45 Intake & Output 09/11/20 09/12/20 09/12/20 18:59 06:59 18:59 Intake Total 480 480 120 Output Total 1 Balance 480 479 120 Weight 44.5 kg Intake: Oral 480 480 120 Output: Urine 1 Other: Voiding Method Toilet Toilet Toilet # Voids 1 1 1 # Bowel Movements 0 - Exam General: The patient is awake and alert, in no distress there is significant swelling of the left parotid gland extending to the need the left submandibular area that is much improved compared to yesterday. No palpable lymphadenopathy. Eye: there is normal conjunctiva bilaterally. Neck: The neck is supple, there is no JVD. Cardiovascular: Normal S1-S2, no S3-S4, no murmurs. Respiratory: Lungs clear to auscultation bilaterally Gastrointestinal: Abdomen is soft, nontender Musculoskeletal: There is no pedal edema. Neurological:. Speech is normal. Skin: Skin is warm and dry - Labs CBC & Chem 7: 09/12/20 05:55 09/12/20 05:55 Labs: Abnormal Lab Results - Last 24 Hours (Table) 09/12/20 09/12/20 Range/Units 05:55 05:55 WBC 11.8 H (3.8-10.6) k/uL RBC 3.79 L (3.80-5.40) m/uL Neutrophils # 11.0 H (1.3-7.7) k/uL Lymphocytes # 0.5 L (1.0-4.8) k/uL Chloride 110 H (96-109) mmol/L BUN 8.0 L (9.0-27.0) mg/dL Creatinine 0.4 L (0.6-1.5) mg/dL Glucose 196 H (70-110) mg/dL Microbiology - Last 24 Hours (Table) 09/10/20 20:38 Blood Culture - Preliminary Blood No Growth after 24 hours 09/10/20 20:50 Blood Culture - Preliminary Blood No Growth after 24 hours Assessment and Plan Assessment: 1. Acute left parotitis: Seen and evaluated by ENT. Continue aggressive IV fluid hydration. IV antibiotic with Unasyn. IV Decadron ordered. 2. Sepsis without septic shock. Improved with aggressive IV fluid hydration and antibiotic. Blood culture negative to date. 3. Underlying depression with history of suicidal thoughts: Psychiatry following closely 4. DVT prophylaxis with subcu heparin
[2020-09-12] MEDS ORDERED: MIRTAZAPINE 15 MG TAB PO SCH (21:00)
[2020-09-13] MEDS: AMPICILLIN-SULBACTAM 3 GM in SODIUM CHLORIDE 0.9% 100 ML IVPB SCH ×2 (03:10→09:17)
[2020-09-13] MEDS: SODIUM CHLORIDE 0.9% 1,000 ML IV SCH ×2 (03:15→06:32)
[2020-09-13 05:55] VITALS: RESP 14
[2020-09-13 07:26] LABS: Basophils % (A) 0 %; Eosinophils # (A) 0.1 k/uL (0-0.7); Eosinophils % (A) 1 %; HCT 35.3 % (34.0-46.0); HGB 11.5 gm/dL (11.4-16.0); Lymphocytes # (A) 0.6 k/uL (1.0-4.8); Lymphocytes % (A) 5 %; MCH 31.5 pg (25.0-35.0); MCHC 32.6 g/dL (31.0-37.0); MCV 96.8 fL (80.0-100.0); Mean Platelet Volume 8.9; Monocytes # (A) 0.4 k/uL (0-1.0); Monocytes % (A) 3 %; Neutrophils # (A) 11.5 k/uL (1.3-7.7); Neutrophils % (A) 91 %; Platelet Count 221 k/uL (150-450); RBC 3.65 m/uL (3.80-5.40); RDW 12.2 % (11.5-15.5); WBC 12.6 k/uL (3.8-10.6)
[2020-09-13] MEDS ORDERED: ARIPiprazole 10 MG TAB PO SCH (09:00)
[2020-09-13] MEDS: SENNOSIDES-DOCUSATE SODIUM 1 EACH TAB PO SCH (09:05)
[2020-09-13 11:49] VITALS: BP 121/75; PULSE 83; TEMP 98.1
[2020-09-13] MEDS: DEXAMETHASONE SOD PHOSPHATE 10 MG/ML 1 ML VIAL IV SCH (12:31)
[2020-09-13] MEDS: HEPARIN SODIUM,PORCINE 5,000 UNIT/ML 1 ML VIAL SQ SCH (12:31)
[2020-09-13] MEDS: PANTOPRAZOLE 40 MG TABLET PO SCH (12:31)
[2020-09-13 12:35] LABS: African American GFR (CKD) 123.6 (60.0-200.0); Anion Gap 11.6 mmol/L (4.00-12.00); Carbon Dioxide 25.4 mmol/L (21.6-31.8); Non-African American GFR(CKD) 106.7 (60.0-200.0)
--- NOTE | 2020-09-13 12:43 | P.DS ---
Providers Date of admission: 09/12/20 13:07 Expected date of discharge: 09/13/20 Attending physician: Jony Carey Consults: 09/10/20 19:13 Consult Physician Routine Consulting Provider: Ed Mckay Consult Reason/Comments: known to physician Do you want consulting provider notified?: Yes 09/11/20 10:59 Consult Physician Routine Consulting Provider: Otto Stevenson Consult Reason/Comments: Severe left parotitis Do you want consulting provider notified?: Yes Primary care physician: Stated None Hospital Course: This is a 59-year-old female who was admitted to the medical floor from the psych unit with worsening left facial swelling and pain. Patient was treated for the below mentioned medical problems. 1. Acute left parotitis: Secondary to severe dehydration and poor by mouth intake. Seen and evaluated by ENT. Started on aggressive IV fluid hydration, IV Decadron, and IV Unasyn. Continue short course of Augmentin for 5 days. No need for further steroid 2. Sepsis without septic shock. Improved with aggressive IV fluid hydration and antibiotic. Blood culture negative to date. 3. Underlying depression with history of suicidal thoughts: Psychiatry following closely Patient will be transferred back to the psych unit today. Encouraged aggressive oral hydration. Plan - Discharge Summary Discharge Rx Participant: No New Discharge Prescriptions: New ARIPiprazole [Abilify] 10 mg PO DAILY tab Amoxic-Pot Clav 875-125Mg [Augmentin 875-125] 1 tab PO BID 5 Days #10 tab polyethylene glycoL 3350 [Miralax] 17 gm PO DAILY #30 packet Mirtazapine [Remeron] 30 mg PO HS tab Continue Citalopram Hydrobromide [CeleXA] 20 mg PO DAILY Discharge Medication List Citalopram Hydrobromide [CeleXA] 20 mg PO DAILY 09/08/20 [History] ARIPiprazole [Abilify] 10 mg PO DAILY tab 09/13/20 [Rx] Amoxic-Pot Clav 875-125Mg [Augmentin 875-125] 1 tab PO BID 5 Days #10 tab 09/13/20 [Rx] Mirtazapine [Remeron] 30 mg PO HS tab 09/13/20 [Rx] polyethylene glycoL 3350 [Miralax] 17 gm PO DAILY #30 packet 09/13/20 [Rx] Activity/Diet/Wound Care/Special Instructions: patient has a slip in the front of chart - money in security Discharge Disposition: TRANSFER TO PSYCH HOSP/UNIT
--- NOTE | 2020-09-13 13:19 | P.PN ---
Progress Note - Text Progress Note Date: 09/13/20 Identifying Data: This patient is a , unemployed, 59-year-old female who is recently admitted on 3 MHU for major depressive disorder and transferred to the medical floor for failure to thrive. Interval History: Patient was seen resting in bed comfortably and was directable and agreeable to speak with the sign writer letterer or painter in her room. Patient continues to endorse elevated depression and anxiety. She expressed concern that she does not have the ability to participate in treatment. She states that she is unable to feel happy. She is not endorsing any overt suicidal ideation but does express that "easier if I was just not here." She is not reporting any homicidal ideation, intention, and/or plan. She reports no auditory or visual hallucinations. She is not reporting any significant side effects of her psychotropic medications. She reports that she had a bowel movement earlier today. Mental Status Exam: General Appearance: Patient appears to be stated age is alert, directable, and cooperative. Patient swelling of the parotid gland has gone down significantly. She is wearing hospital gown, and appears to be of thin build. Behavior: Patient is calmly seated without any agitated behavior. Psychomotor activity is normal. Speech: Patient's speech is fluent and nonpressured. Mood/Affect: Mood is "terrible" affect is congruent, dysphoric. Suicidality/Homicidality: Patient denies having any suicidal or homicidal ideation intent or plan. Perceptions: Patient denies any visual hallucinations and denies any auditory hallucinations Though content/process: Patient is dysphoric thought process. Memory and concentration: AOX3, grossly intact for the purposes of this session Judgment and insight: Very poor Assessment Major depressive disorder, recurrent, severe Generalized anxiety disorder Plan: -Agree to transfer to the psychiatric unit once medically stable. -Medications: Continue Remeron to 30 mg by mouth daily at bedtime for depression/appetite stimulation/insomnia continued Abilify 10 mg by mouth daily for depression/delusional thought process -Psychiatry will continue to follow along.
[2020-09-13] MEDS ORDERED: DEXAMETHASONE SOD PHOSPHATE 4 MG/ML 1 ML VIAL IV SCH (16:00)
--- NOTE | 2020-09-14 14:49 | CDI ---
Documentation Clarification Form Date: 09/13/20 From: Janet Jimenez Phone: If you have a question about this query, please contact Daiana Silverio, [employer] Administrator at [phone] between 8am and 5pm. Admit Date: 09/12/20 Discharge Date:09/13/20 Patient Name: Coni Camp Visit Number: [id number] ATTENTION: The Clinical Documentation Specialists (CDI) and [facility] Coding Staff appreciate your assistance in clarifying documentation. Please respond to the clarification below the line at the bottom and electronically sign. The CDI & [facility] Coding staff will review the response and follow-up if needed. Please note: Queries are made part of the Legal Health Record. If you have any questions, please contact the author of this message via ITS. Dear Dr. Carey Your patient has a documented diagnosis of [Sepsis] - which may lack sufficient clinical evidence/support. History/Risk Factors: Acute left parotitis, dehydration Clinical Indicators: Elevated WBC, elevated pulse, elevated temperature WBC: 13.9 Lactic Acid: Not tested Blood cultures: No growth Vital signs on admission: T. 100.0, P. 98, R. 16, BP 117/73 Treatment: Antibiotics: IV Unasyn IV Bolus: No bolus, NS 1 liter at 150 mls/hr Based on the clinical evidence and your professional judgment, do you feel [Sepsis] is a valid diagnosis? Yes, [Sepsis] present/active during this admission as evidence by (additional clinical support): No, [Sepsis] was ruled out. Other (please specify diagnosis) Unable to determine I don't understand the question I already documented sepsis I'm not sure why you're writing me this? MTDD
== END 2020-09-13 16:45 | DRG 871 ==
LOC: EDBD → INTOOBSV 17:41 → 6NMEDSUR 17:41 → UNDOADMIN 17:41 → 6NMEDSUR 09-11 20:32 → OBSVTOIN 09-12 13:07
PROVIDERS: ADMIT Internal Medicine; ATTEND Internal Medicine
DX: A41.9 Sepsis, unspecified organism (principal); E43 Unspecified severe protein-calorie malnutrition; F33.2 Major depressive disorder, recurrent severe without psychotic features; R45.851 Suicidal ideations; Z68.1 Body mass index [BMI] 19.9 or less, adult; K11.21 Acute sialoadenitis; R62.7 Adult failure to thrive; E86.0 Dehydration; F41.1 Generalized anxiety disorder; I95.1 Orthostatic hypotension; J34.2 Deviated nasal septum; Z90.710 Acquired absence of both cervix and uterus; Z87.891 Personal history of nicotine dependence; Z79.899 Other long term (current) drug therapy; Z87.81 Personal history of (healed) traumatic fracture; Z82.3 Family history of stroke; W19.XXXA Unspecified fall, initial encounter; Y92.239 Unspecified place in hospital as the place of occurrence of the external cause
CPT/HCPCS: 80048; 80053; 83735; 84100; 85025; 86663; 86664; 86665; 86735; 87040; 87070; 87205; 87390; 87502

== ENCOUNTER 2020-09-13 15:49 | Inpatient (IN) | payer BC ==
[2020-09-13] MEDS ORDERED: MAG HYDROX/AL HYDROX/SIMETH 30 ML CUP PO PRN (15:57)
[2020-09-13] MEDS ORDERED: ACETAMINOPHEN TAB 325 MG TAB PO PRN (15:57)
[2020-09-13] MEDS ORDERED: MAGNESIUM HYDROXIDE 2,400 MG/10 ML CUP PO PRN (15:57)
[2020-09-13] MEDS ORDERED: hydrOXYzine pamoate 25 MG CAP PO PRN (16:21)
[2020-09-13] MEDS ORDERED: IBUPROFEN 400 MG TAB PO PRN (16:35)
[2020-09-13] MEDS: PANTOPRAZOLE 40 MG TABLET PO SCH (17:46)
[2020-09-13] MEDS: AMOXIC-POT CLAV 875-125MG 1 EACH TAB PO SCH (20:13)
[2020-09-13] MEDS ORDERED: MIRTAZAPINE 15 MG TAB PO SCH (21:00)
[2020-09-14] MEDS ORDERED: ARIPiprazole 10 MG TAB PO SCH (09:00)
[2020-09-14] MEDS: PANTOPRAZOLE 40 MG TABLET PO SCH ×2 (09:30→17:52)
[2020-09-14] MEDS: AMOXIC-POT CLAV 875-125MG 1 EACH TAB PO SCH ×2 (09:30→21:31)
[2020-09-14] MEDS: polyethylene glycoL 3350 17 GM POWD.PACK PO SCH (09:31)
--- NOTE | 2020-09-14 10:25 | P.HP ---
Psychiatric H&P - . H&P Date: 09/14/20 History & Physical: Allergies Allergy/AdvReac Type Severity Reaction Status Date / Time No Known Allergies Allergy Verified 09/08/20 21:50 Vital Signs Temp 98.0 F 09/14/20 06:03 Pulse 80 09/14/20 06:03 Resp 16 09/14/20 06:03 BP 106/72 09/14/20 06:03 Pulse Ox 95 09/14/20 06:03 Intake & Output 09/13/20 09/14/20 09/14/20 18:59 06:59 18:59 Weight 50 kg 09/14/20 10:16 IDENTIFYING DATA: Patient is a , unemployed, 59-year-old female who was recently admitted on 3 MHU for major depressive disorder and transient to the medical floor for failure to thrive. HPI: Patient presented to the hospital initially on 09/08/2020 brought in by her for constipation. Patient was then admitted to the psychiatric unit due to symptoms of depression and the patient's lack of ability to care for herself with low by mouth input for the past 1-2 weeks. Patient was transferred to the medical unit due to failure to thrive and to rule out any physiological cause for her profound weight loss. Patient was medically stable after for parotitis and has been noted to eat and pass her bowels on the medical floor. Patient was then retransferred back to the psychiatric unit. The patient has been endorsing significant symptoms of depression. She reports hopelessness, helplessness, anhedonia, low energy, and excessive guilt. She is not overtly endorsing any suicidal or homicidal ideation, intention, and/or plan. She does report that she feels like "I cannot keep living this way." She is not reporting any auditory or visual hallucinations. She denies any paranoia. She continues to have a firm belief that she is unable to pass any bowels and will continue to have difficulty swallowing. This appears to be delusional in nature as the patient has been able to do these things as observed by hospital staff. She is not reporting any other delusions at this time. The patient is not currently endorsing any significant symptoms of eleonora. She reports no increased goal- directed activity, racing thoughts, mood swings, or grandiosity. In regards to substance use, the patient has reported history of heavy alcohol use but has reportedly stopped consuming alcohol this past June. She denies any tobacco, marijuana, or any other illicit drug use. PAST PSYCHIATRIC HISTORY: Patient states that she has been progressive diagnosed major depressive disorder. The patient was admitted on 3MHU this past June. She currently follows up with her primary care physician the outpatient setting. Previous medications include Cymbalta, Celexa, and melatonin. One prior attempt at suicide this past May by cutting her wrists. PMH: No reported medical history ALLERGIES: NO KNOWN DRUG ALLERGIES CHEMICAL DEPENDENCY HISTORY: as per HPI FAMILY PSYCHIATRIC/SUBSTANCE USE HISTORY: Denies SOCIAL HISTORY: Patient is currently with her current for 31 years. She lives with her and son. She has 3 children. She was in a house. She reports no legal or history. 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 MENTAL STATUS EXAM: General Appearance: Patient appears to be stated age is alert, directable, and attempts to cooperate. Patient appears to have fair hygiene and grooming. Mild swelling of her left parotid gland. Behavior: Patient is seated without any agitated behavior. Psychomotor activity slightly elevated. Speech: Patient's speech is fluent, low in volume, repetitive and nonpressured. Mood/Affect: Patient reports their mood is anxious and hopeless, affect is congruent, nervous, and constricted. Suicidality/Homicidality: Patient denies having any homicidal ideation intent or plan. Denies any suicidal ideations intent or plan Perceptions: Patient denies any visual hallucinations and denies any auditory hallucinations Though content/process: Patient seems to hold onto delusional thought that she is unable to swallow foods or pass her bowels. Very dysphoric. Memory and concentration: AOX3, grossly intact for the purposes of this session. Can spell "WORLD" backwards Judgment and insight: Very poor STRENGTHS/WEAKNESSES: strength is that patient is stable financially, has stable housing, and a supportive family. Weakness is that patient has decreased her food intake and is very hesitant on being adherent with her medications at this time. INTELLECT: Average IMPRESSIONS: Major depressive disorder, recurrent, severe, with mood congruent psychotic features Generalized anxiety disorder PLAN: -Patient is admitted under voluntary status to MHU for stabilization of psychiatric symptoms and safety. Patient signed adult voluntary form and medication consent and is placed in patient's chart. -Medications : Will start patient on Increase Abilify to 15 mg by mouth daily to address mood congruent psychotic features and to augment antidepressant Increase Remeron to 45 mg by mouth daily at bedtime for depression/appetite stimulation -Ativan PRN for agitation/aggression -Patient was informed of the risks, benefits and side effects of the medication and patient verbally consented to taking the medications. Patient signed med consent form and was placed in chart. -Internal Medicine consult to perform medical evaluation and physical. -SW on board for discharge planning. Encourage patient to participate in groups to work on coping skills.
[2020-09-14] MEDS: MIRTAZAPINE 15 MG TAB PO SCH (21:31)
[2020-09-15] MEDS: ARIPiprazole 5 MG TAB PO SCH (08:44)
[2020-09-15] MEDS: AMOXIC-POT CLAV 875-125MG 1 EACH TAB PO SCH ×2 (08:44→21:23)
[2020-09-15] MEDS: PANTOPRAZOLE 40 MG TABLET PO SCH ×2 (08:44→17:45)
[2020-09-15] MEDS: polyethylene glycoL 3350 17 GM POWD.PACK PO SCH ×2 (08:46→09:06)
--- NOTE | 2020-09-15 10:14 | P.PN ---
Progress Note - Text Progress Note Date: 09/15/20 Interval history: Patient was seen wandering the hallways and was directable and agreeable to s peak with telegraphic typewriter mechanic. She appeared to be mildly anxious today and hesitant in her speech. She spoke about having "fullness" in her stomach and states that she has not had a bowel movement and sustaining on the unit. Patient was agreeable to take stool softener. Residential Mental Health Worker spoke to patient about drinking water and walking on the unit to get her bowels moving. Patient states that "I can't describe my mood" and admitted to some depression. She states that she is able to sleep fairly last night. She claims that she is going to some groups. At this time patient denies any suicidal or homicidal ideations intent or plan. Denies any Auditory or visual hallucinations. Patient denies any side effects from the medications and has been compliant with meds. Mental status exam: General Appearance: Patient appears to be thin, stated age is alert, directable, and attempts to be cooperative. Behavior: No agitated behavior. Patient is calm and directable. Appears to have an anxious appearance. Speech: Patient's speech is fluent and nonpressured. Mood/Affect: Mood is improving mildly, affect is congruent and anxious affect. Suicidality/Homicidality: Patient denies having any suicidal or homicidal ideation intent or plan. Perceptions: Patient denies any auditory or visual hallucinations. Though content/process: [place], poverty of content. Preoccupied with her symptoms. Memory and concentration: AOX3, grossly intact for the purposes of this session Judgment and insight: improving mildly Assessment/Plan: Continue with current diagnosis. Patient continues to meet criteria for inpatient psychiatric admission for symptom stabilization and safety.Patient will be maintained on current psychotropic medication regimen, with the exception of addition of stool softener. Patient was encouraged to drink more water. Monitor for medication compliance and for any psychotropic medication side effects. Will continue to monitor ongoing response to treatment. Encouraged participation in milieu.
[2020-09-15] MEDS: SENNOSIDES-DOCUSATE SODIUM 1 EACH TAB PO SCH ×2 (10:28→21:23)
[2020-09-15] MEDS: MIRTAZAPINE 15 MG TAB PO SCH (21:23)
[2020-09-16] MEDS: ARIPiprazole 5 MG TAB PO SCH (08:32)
[2020-09-16] MEDS: PANTOPRAZOLE 40 MG TABLET PO SCH ×2 (08:32→17:15)
[2020-09-16] MEDS: polyethylene glycoL 3350 17 GM POWD.PACK PO SCH (08:33)
[2020-09-16] MEDS: SENNOSIDES-DOCUSATE SODIUM 1 EACH TAB PO SCH ×2 (08:33→20:29)
[2020-09-16] MEDS: AMOXIC-POT CLAV 875-125MG 1 EACH TAB PO SCH (10:46)
--- NOTE | 2020-09-16 11:08 | P.PN ---
Progress Note - Text Progress Note Date: 09/16/20 Interval history: Patient was seen wandering the hallways and was directable and agreeable to s peak with senior medical writer. Chin appears to be somewhat hesitant in her speech today. She states that her parotitis has increased since yesterday. She claims that she is also continuing to deal with constipation. She states that she has been drinking water and walking throughout the hallways. Patient states that "my mood is not good" and admitted to some depression. She states that she is able to sleep fairly last night. She claims that she is going to some groups. At this time patient denies any suicidal or homicidal ideations intent or plan. Denies any Auditory or visual hallucinations. Patient denies any side effects from the medications and has been compliant with meds. Mental status exam: General Appearance: Patient appears to be thin, stated age is alert, directable, and attempts to be cooperative. Behavior: No agitated behavior. Patient is calm and directable. Appears to be anxious Speech: Patient's speech is fluent and nonpressured. Mood/Affect: Mood is improving mildly, affect is congruent and anxious affect. Suicidality/Homicidality: Patient denies having any suicidal or homicidal ideation intent or plan. Perceptions: Patient denies any auditory or visual hallucinations. Though content/process: [place], poverty of content. Preoccupied with her symptoms. Memory and concentration: AOX3, grossly intact for the purposes of this session Judgment and insight: improving mildly Assessment/Plan: Continue with current diagnosis. Patient continues to meet criteria for inpatient psychiatric admission for symptom stabilization and safety.Patient will be maintained on current psychotropic medication regimen. Increased patient stool softener and patient will be given a dose of milk of magnesia today for constipation. Patient was encouraged to drink more water. Will also order basic metabolic panel and CBC with differential as patient claims that her parotitis has increased. Monitor for medication compliance and for any psychotropic medication side effects. Will continue to monitor ongoing response to treatment. Encouraged participation in milieu.
[2020-09-16 17:11] LABS: Basophils % (A) 0 %; Eosinophils # (A) 0.1 k/uL (0-0.7); Eosinophils % (A) 1 %; HCT 35.1 % (34.0-46.0); HGB 11.8 gm/dL (11.4-16.0); Lymphocytes # (A) 1.5 k/uL (1.0-4.8); Lymphocytes % (A) 23 %; MCH 31.6 pg (25.0-35.0); MCHC 33.6 g/dL (31.0-37.0); Mean Platelet Volume 7.6; Monocytes # (A) 0.4 k/uL (0-1.0); Monocytes % (A) 6 %; Neutrophils # (A) 4.3 k/uL (1.3-7.7); Neutrophils % (A) 68 %; Platelet Count 297 k/uL (150-450); RBC 3.73 m/uL (3.80-5.40); WBC 6.3 k/uL (3.8-10.6)
[2020-09-16 17:16] LABS: African American GFR (CKD) >90 (>60 ml/min/1.73 sqM); Anion Gap 6 mmol/L; Blood Urea Nitrogen 9 mg/dL (7-17); Calcium 8.7 mg/dL (8.4-10.2); Carbon Dioxide 29 mmol/L (22-30); Chloride 101 mmol/L (98-107); Glucose 111 mg/dL (74-99); Non-African American GFR(CKD) >90 (>60 ml/min/1.73 sqM); Potassium 4.1 mmol/L (3.5-5.1); Sodium 136 mmol/L (137-145)
--- NOTE | 2020-09-16 20:20 | P.CONS ---
History of Present Illness - Reason for Consult Consult date: 09/16/20 - History of Present Illness Patient is a 59-year-old female who was initially admitted to the mental health unit from where she was transferred to the medicine service due to acute left parotitis. The patient was treated with IV steroids and antibiotics and was subsequently transferred back to the mental health unit where she was seen and evaluated earlier today. Patient reports improvement in her left facial swellin g but still continues to have discomfort and some warmth. She notes that her dysphagia has also improved though she is having some constipation. She denied any additional complaints. She denied chest pain, shortness of cough, chills, cough, nausea, vomiting. The patient is requesting liquid antibiotics since she has difficulty swallowing the tablets. Review of Systems Pertinent positives and negatives as discussed in HPI, a complete review of systems was performed and all other systems are negative. Past Medical History Past Medical History: No Reported History Additional Past Medical History / Comment(s): Fracture of left humerus. Acute left parotitus with sepsis in August 2020. History of Any Multi-Drug Resistant Organisms: None Reported Past Surgical History: Hysterectomy Additional Past Surgical History / Comment(s): wisdom teeth removed Past Anesthesia/Blood Transfusion Reactions: No Reported Reaction Past Psychological History: Depression Smoking Status: Former smoker Past Alcohol Use History: Daily, Heavy Additional Past Alcohol Use History / Comment(s): 5 cigs/day for 30 yrs. Past Drug Use History: None Reported - Past Family History Mother Family Medical History: No Reported History Additional Family Medical History / Comment(s): Stroke Medications and Allergies Home Medications Medication Instructions Recorded Confirmed Type Citalopram Hydrobromide [CeleXA] 20 mg PO DAILY 09/08/20 09/13/20 History ARIPiprazole [Abilify] 10 mg PO DAILY tab 09/13/20 09/13/20 Rx Amoxic-Pot Clav 875-125Mg 1 tab PO BID 5 Days #10 tab 09/13/20 09/13/20 Rx [Augmentin 875-125] Mirtazapine [Remeron] 30 mg PO HS tab 09/13/20 09/13/20 Rx polyethylene glycoL 3350 [Miralax] 17 gm PO DAILY #30 packet 09/13/20 09/13/20 Rx Allergies Allergy/AdvReac Type Severity Reaction Status Date / Time No Known Allergies Allergy Verified 09/08/20 21:50 Physical Exam Vitals: Vital Signs Temp Pulse Resp BP 09/16/20 12:37 97.3 F L 09/16/20 09:07 20 09/16/20 06:46 97.7 F 73 104/63 09/15/20 20:50 98.5 F Intake and Output 09/16/20 09/16/20 09/16/20 06:59 14:59 22:59 Other: Weight 46.9 kg General: non toxic, no distress, appears at stated age, underweight Derm: no unusual rashes/lesions no unusual ecchymoses, warm, dry Head: atraumatic, normocephalic, symmetric Eyes: EOMI, no lid lag, anicteric sclera, pupils equal round reactive to light ENT: Nose and ears atraumatic, no thrush, no pharyngeal erythema, left facial mandibular angle swelling with some warmth and mild tenderness Neck: No thyromegaly, no cervical lymphadenopathy, trachea midline, supple Mouth: no lip lesion, mucus membranes moist Cardiovascular: S1S2 reg, no murmur, positive posterior tibial pulse bilateral, no edema, capillary refill less than 2 seconds Lungs: CTA bilateral, no rhonchi, no rales , no accessory muscle use Abdominal: soft, nontender to palpation, no guarding, no appreciable or ganomegaly, normal bowel sounds Ext: no gross muscle atrophy, muscle strength 5 out of 5 in all 4 extremities grossly, no contractures, Neuro: CN II-XI grossly intact, light touch intact all 4 extremities, finger to nose within normal limits, Psych: Alert, oriented, appropriate affect Results CBC & Chem 7: 09/16/20 16:46 09/16/20 16:46 Labs: Abnormal Lab Results - Last 24 Hours (Table) 09/16/20 09/16/20 Range/Units 16:46 16:46 RBC 3.73 L (3.80-5.40) m/uL Sodium 136 L (137-145) mmol/L Creatinine 0.45 L (0.52-1.04) mg/dL Glucose 111 H (74-99) mg/dL Assessment and Plan Plan: Acute left parotitis -Currently undergoing 5 days of oral Augmentin therapy -Switched to oral suspension upon patient's request Constipation -Continue with MiraLAX and Senokot Depression and Suicidal ideation -As per psychiatry Thank you for allowing us to participate in the care of this patient. We will follow peripherally. Do not hesitate to contact us with questions. Someone can be reached from the [facility] hospitalist group at all hours of the day at [phone].
[2020-09-16] MEDS: MIRTAZAPINE 15 MG TAB PO SCH (20:29)
[2020-09-16] MEDS: AMOXIC-POT CLAV 200-28.5MG/5ML 100 ML BOTTLE PO SCH (20:56)
[2020-09-17] MEDS: SENNOSIDES-DOCUSATE SODIUM 1 EACH TAB PO SCH ×2 (08:24→21:00)
[2020-09-17] MEDS: ARIPiprazole 5 MG TAB PO SCH (08:24)
[2020-09-17] MEDS: PANTOPRAZOLE 40 MG TABLET PO SCH ×2 (08:24→16:56)
[2020-09-17] MEDS: polyethylene glycoL 3350 17 GM POWD.PACK PO SCH (08:26)
[2020-09-17] MEDS: AMOXIC-POT CLAV 200-28.5MG/5ML 100 ML BOTTLE PO SCH ×2 (09:09→20:59)
--- NOTE | 2020-09-17 10:20 | P.PN ---
Progress Note - Text Progress Note Date: 09/17/20 Interval History: Patient was seen resting on her bed and was directable and agreeable to speak with keno writer / runner in the office. Patient expresses that she "is not getting any better." She continues to believe that she is unable to eat, passerby forte, and will be unable to tolerate any new medications. She was presented with evidence of the contrary including her as, passing her bowels, and being able to eat soft foods. The patient continues to express significant symptoms of depression including hopelessness, helplessness, and a dysphoric thought process. She is not reporting any suicidal ideation but does state that she "cannot keep living this way." Patient is requesting discharge as she feels like nothing here is helping. She reports that she will not take any medications if it is increased. She was informed that if this was the case, the patient will likely have to be petitioned and certified for a court order. She has been adherent with her medications and has not been reporting any significant side effects. Mental Status Exam: General Appearance: Patient appears to be stated age, is alert, directable, and attempts to cooperate. She is of thin build. She appears to fair hygiene and grooming. The swelling of her left parotid gland has gone down significantly. Behavior: Patient is calmly seated without any agitated behavior. Speech: Patient's speech is fluent and nonpressured, but low in volume and often repetitive.. Mood/Affect: Mood is "nothing's better." affect is congruent, dysphoric, anxious. Suicidality/Homicidality: Patient denies having any suicidal or homicidal ideation intent or plan. Perceptions: Patient denies any visual hallucinations and denies any auditory hallucinations Though content/process: Delusional thought content is evident. Dysphoric thought process. Very preoccupied with her symptoms. Memory and concentration: AOX3, grossly intact for the purposes of this session Judgment and insight: Very poor Assessment Major depressive disorder, recurrent, severe, with mood congruent psychotic features Generalized anxiety disorder Plan: -Patient continues to meet criteria for inpatient psychiatric admission for symptom stabilization and safety. Patient has signed [dult voluntary form and]medication consent and was placed in patient's chart. -Medications: Increase Abilify to 20 mg by mouth daily to address mood congruent psychotic features and to augment her antidepressant Continue Remeron 45 mg by mouth daily at bedtime for depression/appetite stimulation -When necessary Ativan for agitation/aggression. -SW on board for discharge planning. Encouraged the patient to participate in milieu. []
--- NOTE | 2020-09-17 10:36 | P.PN ---
Progress Note - Text Progress Note Date: 09/17/20 Interval History: Patient was seen resting in bed and was directable and agreeable to speak with telegraphic typewriter mechanic in the office. Patient reports that he came to the emergency department because he is feeling suicidal and homicidal. He is not reporting any suicidal ideation today but states that he still has mild homicidal thoughts. He reports that he wants to hurt somebody who has been messing with him. He is unable to verbalize what exactly it is at this point. He does not answer when asked if he has any access to firearms or weapons. He reports that he is expressing auditory hallucinations yesterday which he reported were demeaning and derogatory nature. He denies any visual hallucinations. He has been adherent with his medications and denies any side effects. He is currently reporting lower back pain which he feels is not appropriately managed at this time. Mental Status Exam: General Appearance: Patient appears to be stated age is alert, directable, but superficial. Hygiene and grooming appear fair. He is wearing a hat as part of his catholic. Behavior: No agitated behavior. Patient is lying in bed comfortably with minimal eye contact. Speech: Patient's speech is fluent, low in volume, and nonpressured. Not spontaneous. Mood/Affect: Mood is improving mildly, affect is congruent and constricted. Suicidality/Homicidality: Patient denies any suicidal ideation, intention, and/or plan. He reports homicidal ideation but is unable to report any inte ntion or plan at this time. Perceptions: He endorsed auditory hallucinations yesterday. He reports no current auditory or visual hallucinations. Though content/process: There is no evidence of any delusional thought content and thought process is linear and goal-directed. Preoccupied with pain medications. Memory and concentration: AOX3, grossly intact for the purposes of this session Judgment and insight: Improving mildly Assessment Schizoaffective disorder, depressive type Cannabis use disorder Nicotine dependence Plan: -Patient continues to meet criteria for inpatient psychiatric admission for symptom stabilization and safety. Patient has signed adult voluntary form and medication consent and was placed in patient's chart. -Medications: Increase Lexapro to 20 mg by mouth daily for depression Increase Seroquel to 150 mg by mouth at bedtime for depression/psychosis Continue Lamictal 50 mg by mouth twice a day for mood stabilization -When necessary Ativan and and Haldol agitation/aggression. -NRT - nicotine patch -SW on board for discharge planning. Encouraged the patient to participate in milieu.
[2020-09-17] MEDS: MIRTAZAPINE 15 MG TAB PO SCH (21:00)
[2020-09-18] MEDS: PANTOPRAZOLE 40 MG TABLET PO SCH ×2 (09:09→17:16)
[2020-09-18] MEDS: polyethylene glycoL 3350 17 GM POWD.PACK PO SCH (09:10)
[2020-09-18] MEDS: AMOXIC-POT CLAV 200-28.5MG/5ML 100 ML BOTTLE PO SCH ×2 (09:10→20:40)
[2020-09-18] MEDS: SENNOSIDES-DOCUSATE SODIUM 1 EACH TAB PO SCH ×2 (09:10→20:42)
--- NOTE | 2020-09-18 10:17 | P.PN ---
Progress Note - Text Progress Note Date: 09/18/20 Interval History: Patient was seen resting on her bed and was directable and agreeable to speak with travel writer in the office. She continues to express that she feels "about the same." She continues to report that she has some difficulty eating but today she appears to be more future oriented and goal oriented. She states that she wants to try soft mechanical foods today. Although the patient has been taking her medications as prescribed, she continues to report that she has difficulty swallowing the medications. She continues to endorse symptoms of depression including hopelessness, helplessness, and her dysphoric thought process. She is not reporting any stove overt suicidal or homicidal ideation, intention, and/or plan today. This provider discussed initiation of another antidepressant on top of her current regimen, which the patient states that she will try tomorrow as she wants to try soft mechanical foods first. She is not reporting any auditory or visual hallucinations. She denies any paranoia but continues to have somatic delusional thoughts that she is unable to pass her bowels. Patient has not been attending groups but states that she will try attending groups today. Mental Status Exam: General Appearance: Patient appears to be stated age, is alert, directable, and attempts to cooperate. She is of thin build. She appears to fair hygiene and grooming. No swelling is evident. Behavior: Patient is calmly seated without any agitated behavior. Speech: Patient's speech is fluent and nonpressured, but low in volume. Mood/Affect: Mood is "I feel about the same" affect is congruent, dysphoric, anxious. Suicidality/Homicidality: Patient denies having any suicidal or homicidal ideation intent or plan. Perceptions: Patient denies any visual hallucinations and denies any auditory hallucinations Though content/process: Delusional thought content is evident. Dysphoric thought process. Continued preoccupation with her symptoms. More goal-oriented today ago. Memory and concentration: AOX3, grossly intact for the purposes of this session Judgment and insight: Mildly improving Assessment Major depressive disorder, recurrent, severe, with mood congruent psychotic features Generalized anxiety disorder Plan: -Patient continues to meet criteria for inpatient psychiatric admission for symptom stabilization and safety. Patient has signed Adult voluntary form andmedication consent and was placed in patient's chart. -Medications: Increase Abilify to 30 mg by mouth daily to address mood congruent psychotic features and to augment her antidepressant Continue Remeron 45 mg by mouth daily at bedtime for depression/appetite stimul ation Consider the introduction of Effexor or an SSRI for depression/anxiety. -SW on board for discharge planning. Encouraged the patient to participate in milieu.
[2020-09-18 11:40] VITALS: BMI 17.7
[2020-09-18] MEDS: MIRTAZAPINE 15 MG TAB PO SCH (20:42)
[2020-09-19] MEDS: AMOXIC-POT CLAV 200-28.5MG/5ML 100 ML BOTTLE PO SCH (09:44)
[2020-09-19] MEDS: ARIPiprazole 15 MG TAB PO SCH (09:45)
[2020-09-19] MEDS: PANTOPRAZOLE 40 MG TABLET PO SCH ×2 (09:45→17:36)
[2020-09-19] MEDS: SENNOSIDES-DOCUSATE SODIUM 1 EACH TAB PO SCH ×2 (09:46→20:23)
[2020-09-19] MEDS: polyethylene glycoL 3350 17 GM POWD.PACK PO SCH (09:46)
--- NOTE | 2020-09-19 11:24 | P.PN ---
Progress Note - Text Progress Note Date: 09/19/20 Interval History: Patient was seen resting on her bed and was directable and agreeable to speak with investigative writer in the office. Patient continues to report that she feels like nothing is getting better. She has been switched to soft foods yesterday. Patient reports that she had difficulty eating these foods and states that she has not had any bowel movement over the last 3 days. She has been taking her medications as prescribed. She is not reporting any suicidal or homicidal ideation, intention, and/or plan. She reports no auditory or visualizations. She continues to endorse significant symptoms of depression including hopelessness, helplessness, and her dysphoric thought process. Patient is expressing that she wants to be discharged to try going home first, and then return to see if that will help. She was informed that that she can file a 72- hour notice. Mental Status Exam: General Appearance: Patient appears to be stated age, is alert, directable, and attempts to cooperate. She is of thin build. She appears to fair hygiene and grooming. Behavior: Patient is calmly seated without any agitated behavior. Speech: Patient's speech is fluent and nonpressured, but low in volume. Mood/Affect: Mood is "terrible" affect is congruent, dysphoric, anxious. Suicidality/Homicidality: Patient denies having any suicidal or homicidal ideation intent or plan. Perceptions: Patient denies any visual hallucinations and denies any auditory hallucinations Though content/process: Delusional thought content is evident. Dysphoric thought process. Continued preoccupation with her symptoms. Memory and concentration: AOX3, grossly intact for the purposes of this session Judgment and insight: Poor Assessment Major depressive disorder, recurrent, severe, with mood congruent psychotic features Generalized anxiety disorder Plan: -Patient continues to meet criteria for inpatient psychiatric admission for symptom stabilization and safety. Patient has signed Adult voluntary form andmedication consent and was placed in patient's chart. -Medications: Increase Abilify to 30 mg by mouth daily to address mood congruent psychotic features and to augment her antidepressant Continue Remeron 45 mg by mouth daily at bedtime for depression/appetite stimulation Start Effexor 37.5 mg at bedtime for depression/anxiety -Thought processing and thought work in cognitive behavioral therapy was performed today with the patient. We will continue to educate and teach the patient to identify her delusions and challenged her core beliefs. -HARISH on board for discharge planning. Encouraged the patient to participate in milieu.
[2020-09-19] MEDS: MIRTAZAPINE 15 MG TAB PO SCH (20:23)
[2020-09-19] MEDS: VENLAFAXINE HCL ER 37.5 MG CAP PO SCH (20:23)
[2020-09-20] MEDS: polyethylene glycoL 3350 17 GM POWD.PACK PO SCH (09:11)
[2020-09-20] MEDS: SENNOSIDES-DOCUSATE SODIUM 1 EACH TAB PO SCH ×2 (09:12→20:26)
[2020-09-20] MEDS: ARIPiprazole 15 MG TAB PO SCH (09:12)
[2020-09-20] MEDS: PANTOPRAZOLE 40 MG TABLET PO SCH ×2 (09:12→19:01)
--- NOTE | 2020-09-20 09:31 | P.PN ---
Progress Note - Text Progress Note Date: 09/20/20 Interval History: Patient was seen wandering the hallways was directable and agreeable to speak with automotive service writer in the office. Patient continues to report that she feels like "about the same." Despite this, the patient reports that she was able to eat some omelette today and drink some juice. She reports that she had a bowel movement yesterday. She also has been taking her medications as prescribed. She is not reporting any suicidal or homicidal ideation, intention, and/or plan. She continues to report that she feels like she cannot keep living this way. She denies any auditory or visual hallucinations. She continues to report hopelessness, helplessness, and fixation on her somatic symptoms. She continues to report that she feels like her abdomen is feeling tight and she is concerned that she would be able to pass any stool. She does report that when she took the Effexor last night, she felt like she was "much warmer than usual." She denies any sweats. She is hesitant to go up on the medication tonight. Mental Status Exam: General Appearance: Patient appears to be stated age, is alert, directable, and attempts to cooperate. She is of thin build. She appears to fair hygiene and grooming. Behavior: Patient is calmly seated without any agitated behavior. Speech: Patient's speech is fluent and nonpressured, but low in volume. Mood/Affect: Mood is "about the same" affect is dysphoric, anxious but range of affect appears to be improved. Suicidality/Homicidality: Patient denies having any suicidal or homicidal ideation intent or plan. Perceptions: Patient denies any visual hallucinations and denies any auditory hallucinations Though content/process: Delusional thought content is evident. Dysphoric thought process. Continued preoccupation with her symptoms. Memory and concentration: AOX3, grossly intact for the purposes of this session Judgment and insight: Poor Assessment Major depressive disorder, recurrent, severe, with mood congruent psychotic features Generalized anxiety disorder Plan: -Patient continues to meet criteria for inpatient psychiatric admission for symptom stabilization and safety. Patient has signed Adult voluntary form andmedication consent and was placed in patient's chart. -Medications: Continue Abilify to 30 mg by mouth daily to address mood congruent psychotic features and to augment her antidepressant Continue Remeron 45 mg by mouth daily at bedtime for depression/appetite stimulation Continue Effexor 37.5 mg at bedtime for depression/anxiety. Will titrate medication tomorrow. -Thought processing and thought work in cognitive behavioral therapy was performed today with the patient. We will continue to educate and teach the patient to identify her delusions and challenged her core beliefs. -SW on board for discharge planning. Encouraged the patient to participate in milieu.
[2020-09-20] MEDS: VENLAFAXINE HCL ER 37.5 MG CAP PO SCH (20:26)
[2020-09-20] MEDS: MIRTAZAPINE 15 MG TAB PO SCH (20:26)
[2020-09-21] MEDS: SENNOSIDES-DOCUSATE SODIUM 1 EACH TAB PO SCH ×2 (07:51→20:59)
[2020-09-21] MEDS: ARIPiprazole 15 MG TAB PO SCH (07:51)
[2020-09-21] MEDS: PANTOPRAZOLE 40 MG TABLET PO SCH ×2 (07:51→17:16)
[2020-09-21] MEDS: polyethylene glycoL 3350 17 GM POWD.PACK PO SCH (07:52)
--- NOTE | 2020-09-21 10:50 | P.PN ---
Progress Note - Text Progress Note Date: 09/21/20 Interval History: Patient was seen attending group and was directable and agreeable to speak with marketing copywriter in the office. Patient continues to report that she feels like "The same as always. Nothing is different." Despite the patient's feelings, the patient has been able to eat some of her food today, reported a bowel movement yesterday, and was seen attending group today. She is not reporting any suicidal or homicidal ideation, intention, and/or plan. She continues to d isplay dysphoric thought processes stating that it is very difficult to go throughout her day. She was stating that she does not want to go up on any of her medications because she feels like there is no point. When presented with evidence of the contrary, the patient continues to report that nothing has changed. She is not reporting any issues with sleep. She has been adherent with her medications and denies any side effects at this time. She reports no auditory or visual hallucinations. Mental Status Exam: General Appearance: Patient appears to be stated age, is alert, directable, and attempts to cooperate. She is of thin build. She appears to fair hygiene and grooming. Behavior: Patient is calmly seated without any agitated behavior. Speech: Patient's speech is fluent and nonpressured, but low in volume. Mood/Affect: Mood is "helpless and hopeless" affect is dysphoric, anxious. Suicidality/Homicidality: Patient denies having any suicidal or homicidal ideation intent or plan. Perceptions: Patient denies any visual hallucinations and denies any auditory hallucinations Though content/process: Very dysphoric thought process. Fixated that nothing seems to be better despite evidence to the contrary. Memory and concentration: AOX3, grossly intact for the purposes of this session Judgment and insight: Very poor Assessment Major depressive disorder, recurrent, severe, with mood congruent psychotic features Generalized anxiety disorder Plan: -Patient continues to meet criteria for inpatient psychiatric admission for symptom stabilization and safety. Patient has signed Adult voluntary form and medication consent and was placed in patient's chart. -Medications: Continue Abilify to 30 mg by mouth daily to address mood congruent psychotic features and to augment her antidepressant Continue Remeron 45 mg by mouth daily at bedtime for depression/appetite stimulation Continue Effexor 37.5 mg at bedtime for depression/anxiety. Patient is stating that she will refuse any increase in her medication. She is a voluntary admission. -We will draw a competent metabolic panel to ensure that the patient is having an adequate intake of nutrition. -Light confrontation of the patient's core beliefs occurred. She continues to be very dysphoric but is unable to identify evidence against her overall clinical improvement. She will continue to require retirement counseling and therapy. -SW on board for discharge planning. Encouraged the patient to participate in milieu.
[2020-09-21] MEDS: VENLAFAXINE HCL ER 37.5 MG CAP PO SCH (21:00)
[2020-09-21] MEDS ORDERED: VENLAFAXINE HCL ER 75 MG CAP PO SCH (21:00)
[2020-09-21] MEDS: MIRTAZAPINE 15 MG TAB PO SCH (21:00)
[2020-09-22 07:10] VITALS: RESP 17
[2020-09-22] MEDS: PANTOPRAZOLE 40 MG TABLET PO SCH ×2 (08:54→16:50)
[2020-09-22] MEDS: ARIPiprazole 15 MG TAB PO SCH (08:54)
[2020-09-22] MEDS: SENNOSIDES-DOCUSATE SODIUM 1 EACH TAB PO SCH ×2 (08:55→21:32)
[2020-09-22] MEDS: polyethylene glycoL 3350 17 GM POWD.PACK PO SCH (08:56)
[2020-09-22 09:54] LABS: ALT 20 U/L (4-34); AST 23 U/L (14-36); African American GFR (CKD) >90 (>60 ml/min/1.73 sqM); Albumin 3.8 g/dL (3.5-5.0); Alkaline Phosphatase 69 U/L (38-126); Anion Gap 8 mmol/L; Blood Urea Nitrogen 15 mg/dL (7-17); Calcium 9.5 mg/dL (8.4-10.2); Carbon Dioxide 29 mmol/L (22-30); Chloride 100 mmol/L (98-107); Glucose 171 mg/dL (74-99); Non-African American GFR(CKD) >90 (>60 ml/min/1.73 sqM); Potassium 4.5 mmol/L (3.5-5.1); Sodium 137 mmol/L (137-145); Total Bilirubin 0.5 mg/dL (0.2-1.3); Total Protein 6.8 g/dL (6.3-8.2)
--- NOTE | 2020-09-22 14:32 | P.PN ---
Progress Note - Text Progress Note Date: 09/22/20 Clinical Problems: Disorder recurrent severe with mood-congruent psychotic features, generalized anxiety disorder Interim history: I reviewed the medical record and interviewed the patient. She was unwilling to get out of bed for the interview. In response to my question about how she is feeling she replied I don't mouth. She talked about not having an appetite and not being able to eat properly. Her weight has increased from 45.3 kg when she was first admitted to the psychiatric unit on 09/08/2020 to 46.9 kg. She slept for 4 hours last night and intermittently attends therapeutic groups and activities. Therapists note that she has low motivation. Mental status exam: She presented as a thin 59-year-old female who is laying in bed. She did not make eye contact. She had no prominent physical abnormalities. She had a depressed facial expression. She had marked psychomotor retardation. Her speech was not spontaneous and had decreased rhythm and rate and volume. Her affect was depressed and unreactive. She did not express suicidal thoughts or ideations and wishes. She did not express feelings of worthlessness. She is not paranoid expressed no paranoid delusions. Her thinking was concrete but her associations appeared goal directed. She did not appear to be responding to internal stimuli. Assessment: She remains seriously mental health and minimally improve from admission. [place]: Continue inpatient treatment. Safety precautions. Continue current psychotropic medications Effexor 37.5 mg daily, Remeron 45 mg at bedtime and Abilify 30 mg daily. Encourage participation in therapeutic groups and activities. Continue to monitor her nutritional intake and weights. Evaluate clinical status response to treatment daily basis.
[2020-09-22] MEDS: MIRTAZAPINE 15 MG TAB PO SCH (21:30)
[2020-09-22] MEDS: VENLAFAXINE HCL ER 37.5 MG CAP PO SCH (21:30)
[2020-09-23] MEDS: SENNOSIDES-DOCUSATE SODIUM 1 EACH TAB PO SCH ×2 (08:56→21:37)
[2020-09-23] MEDS: PANTOPRAZOLE 40 MG TABLET PO SCH ×2 (08:56→17:59)
[2020-09-23] MEDS: ARIPiprazole 15 MG TAB PO SCH (08:56)
[2020-09-23] MEDS: polyethylene glycoL 3350 17 GM POWD.PACK PO SCH (08:57)
--- NOTE | 2020-09-23 13:17 | P.PN ---
Progress Note - Text Progress Note Date: 09/23/20 Clinical Problems: Disorder recurrent severe with mood-congruent psychotic features, generalized anxiety disorder Interim history: I reviewed the medical record and attempted interviewed the patient. She was unwilling to get out of bed for the interview. She gave vague answers and response to questions about her current mental state. In response to my question about how she is feeling she responded "I don't know." She is unmotivated to get out of bed or participate in activities. She progressed but did not eat lunch. Mental status exam: She presented as a thin 59-year-old female who is laying in bed. She did not make eye contact. She had no prominent physical abnormalities. She had a depressed facial expression. She had marked psychomotor retardation. Her speech was not spontaneous and had decreased rhythm and rate and volume. Her affect was depressed and unreactive. She did not express suicidal thoughts or ideations and wishes. She did not express feelings of worthlessness. She is not paranoid expressed no paranoid delusions. Her thinking was concrete but her associations appeared goal directed. She did not appear to be responding to internal stimuli. Assessment: She remains seriously mental health and minimally improve from admission. [place]: Continue inpatient treatment. Safety precautions. Continue current psychotropic medications Effexor 37.5 mg daily, Remeron 45 mg at bedtime and Abilify 30 mg daily. Encourage participation in therapeutic groups and activities. Continue to monitor her nutritional intake and weights. Evaluate clinical status response to treatment daily basis.
[2020-09-23] MEDS: VENLAFAXINE HCL ER 37.5 MG CAP PO SCH (21:37)
[2020-09-23] MEDS: MIRTAZAPINE 15 MG TAB PO SCH (21:38)
[2020-09-24 06:31] VITALS: BP 96/55; PULSE 84; TEMP 98.3
[2020-09-24] MEDS: ARIPiprazole 15 MG TAB PO SCH (09:55)
[2020-09-24] MEDS: PANTOPRAZOLE 40 MG TABLET PO SCH (09:55)
[2020-09-24] MEDS: SENNOSIDES-DOCUSATE SODIUM 1 EACH TAB PO SCH (09:56)
[2020-09-24] MEDS: polyethylene glycoL 3350 17 GM POWD.PACK PO SCH (09:56)
--- NOTE | 2020-09-24 11:57 | P.DS ---
Providers Date of admission: 09/13/20 16:46 Expected date of discharge: 09/24/20 Attending physician: Ed Mckay MD Consults: 09/13/20 15:57 Consult Physician Routine Consulting Provider: Светлана Rodriguez Consult Reason/Comments: H & P and medical care Do you want consulting provider notified?: Yes Primary care physician: Stated None - Discharge Diagnosis(es) (1) Major depressive disorder, recurrent, severe with psychotic features Current Visit: Yes Status: Acute Priority: High (2) Generalized anxiety disorder Current Visit: Yes Status: Acute Priority: Medium Hospital Course: Admission HPI: Patient is a , unemployed, 59-year-old female who was recently admitted on 3 MHU for major depressive disorder and transient to the medical floor for failure to thrive. Patient presented to the hospital initially on 09/08/2020 brought in by her for constipation. Patient was then admitted to the psychiatric unit due to symptoms of depression and the patient's lack of ability to care for herself with low by mouth input for the past 1-2 weeks. Patient was transferred to the medical unit due to failure to thrive and to rule out any physiological cause for her profound weight loss. Patient was medically stable after for parotitis and has been noted to eat and pass her bowels on the medical floor. Patient was then retransferred back to the psychiatric unit. The patient has been endorsing significant symptoms of depression. She reports hopelessness, helplessness, anhedonia, low energy, and excessive guilt. She is not overtly endorsing any suicidal or homicidal ideation, intention, and/or plan. She does report that she feels like "I cannot keep living this way." She is not reporting any auditory or visual hallucinations. She denies any paranoia. She continues to have a firm belief that she is unable to pass any bowels and will continue to have difficulty swallowing. This appears to be delusional in nature as the patient has been able to do these things as observed by hospital staff. She is not reporting any other delusions at this time. The patient is not currently endorsing any significant symptoms of eleonora. She reports no increased goal- directed activity, racing thoughts, mood swings, or grandiosity. In regards to substance use, the patient has reported history of heavy alcohol use but has rep ortedly stopped consuming alcohol this past June. She denies any tobacco, marijuana, or any other illicit drug use. Hospital course: Upon admission to the unit patient was initially present on the psychiatric unit on 09/08/2020 but was transferred to the medical floor on 09/09/2020 due to failure to thrive. On the medical floor, the patient was treated for parotitis and evaluated for possible bowel obstruction and dysphagia. Medical causes were ruled out. The patient is retransferred back to the psychiatric unit on 09/14/2020. Patient continued to be very dysphoric and somatic but was agreeable to start treatment. Patient got along well with other patients on the unit and followed unit protocol. Patient was compliant with the medications and denied any side effects throughout hospital course. Patient was started on Abilify and Remeron to manage her depression with psychotic features. Patient primarily To herself but would occasionally attend group. Throughout the course of the hospitalization patient gradually improved with regards to her appetite, increased activity, and range of affect and became future oriented with improved insight and judgment. She continued to display dysphoric thought processes and subjective feelings of depression. Effexor was started to address depression symptoms. Patient refused to increase her dose of Effexor during her hospital stay. On the day of discharge, the patient denied any suicidal or homicidal ideation, intention, and/or plan. She denied any auditory or visual hallucinations. Patient endorsed wanting to live for or health and family The patient denied any access to guns or weapons. Patient denied any paranoia and did not endorse any delusions. Patient does not have a significant history of substance abuse however was counseled on abstaining from all substances including alcohol and marijuana. Patient was also counseled on the medications and need for regular compliance and was encouraged to follow-up with their outpatient appointment for mental health and also for primary care. Discussion with the patient's took place prior to discharge. The psychiatrist recommended that the patient may require electroconvulsive therapy should she display no significant improvement in her depressive symptoms or display a worsening of her current condition. During her hospitalization, the patient has gained weight, has no other to light abnormality is on day of discharge, and has been able to pass stool appropriately. Mental status exam: General Appearance: Patient appears to be stated age is alert, pleasant, and cooperative. Patient is in no acute distress and has fair hygiene and grooming. Behavior: Patient is calmly seated without any agitated behavior. Speech: Patient's speech is fluent and nonpressured. Mood/Affect: Patient reports their mood is "still feeling about the same", affect is anxious, but with improved range of affect Suicidality/Homicidality: Patient denies having any suicidal or homicidal ideation intent or plan. Perceptions: Patient denies any auditory or visual hallucinations. Though content/process: There is no evidence of any delusional thought content and thought process is linear and goal-directed Memory and concentration: AOX3, grossly intact for the purposes of this session. Can spell "WORLD" backwards correctly. Judgment and insight: Improved with guarded prognosis Impression: Major depressive disorder, recurrent, severe, with psychotic features Generalized anxiety disorder Plan: -Continue with discharge today as patient has improved and stabilized psychiatrically and is not currently an imminent threat to herself and/or others. -Continue medications: Abilify 30 mg by mouth daily for depression/mood augmentation/psychosis Effexor 37.5 mg by mouth daily at bedtime for depression/anxiety Remeron 45 mg by mouth daily at bedtime for depression/appetite stimulation -Patient was counseled on the need for medication compliance and appropriate follow-up at mental health and also primary care for medical issues. Patient verbalized understanding and agreed. -Social work to arrange for and conduct family meeting to ensure safety upon discharge and answer any questions/concerns. Social work also to arrange for patients follow up appointments [facility] along with follow up with primary care provider. -Patient counseled on abstaining from recreational drugs and marijuana and alcohol. Was informed/educated on the adverse effects on their physical and mental health. Patient verbally agreed and understood. -Patient was instructed to return to the hospital or seek immediate medical care if their psychiatric or medical symptoms do worsen or reoccur. -Psychoeducation and supportive therapy provided to patient. Risks and benefits of pharmacological treatment versus the risks and benefits of nontreatment weight and discussed. Informed consent discussion held. Common side effects of psychotropics discussed such as, but not limited to headache, GI disturbance, sexual dysfunction, movement disorders, sedation, and orthostatic hypotension. Life threatening and blackbox warnings of prescribed medications also discussed. Potential risks of operating a vehicle or heavy machinery discussed with patient at length. Advised on importance of compliance and a reliable and responsible manner. Patient advised to review FDA consumer labeling of all medications prior to taking. Patient verbalized understanding of potential risks, and agrees with current treatment plan. Patient advised to medically contact physician/emergency personnel if any acute changes in condition occur. Allergies Allergy/AdvReac Type Severity Reaction Status Date / Time No Known Allergies Allergy Verified 09/08/20 21:50 Laboratory Results WBC 6.3 k/uL (3.8-10.6) 09/16/20 16:46 RBC 3.73 m/uL (3.80-5.40) L 09/16/20 16:46 Hgb 11.8 gm/dL (11.4-16.0) 09/16/20 16:46 Hct 35.1 % (34.0-46.0) 09/16/20 16:46 MCV 94.0 fL (80.0-100.0) 09/16/20 16:46 MCH 31.6 pg (25.0-35.0) 09/16/20 16:46 MCHC 33.6 g/dL (31.0-37.0) 09/16/20 16:46 RDW 12.0 % (11.5-15.5) 09/16/20 16:46 Plt Count 297 k/uL (150-450) 09/16/20 16:46 MPV 7.6 09/16/20 16:46 Neutrophils % 68 % 09/16/20 16:46 Lymphocytes % 23 % 09/16/20 16:46 Monocytes % 6 % 09/16/20 16:46 Eosinophils % 1 % 09/16/20 16:46 Basophils % 0 % 09/16/20 16:46 Neutrophils # 4.3 k/uL (1.3-7.7) 09/16/20 16:46 Lymphocytes # 1.5 k/uL (1.0-4.8) 09/16/20 16:46 Monocytes # 0.4 k/uL (0-1.0) 09/16/20 16:46 Eosinophils # 0.1 k/uL (0-0.7) 09/16/20 16:46 Basophils # 0.0 k/uL (0-0.2) 09/16/20 16:46 Sodium 137 mmol/L (137-145) 09/22/20 09:00 Potassium 4.5 mmol/L (3.5-5.1) 09/22/20 09:00 Chloride 100 mmol/L (98-107) 09/22/20 09:00 Carbon Dioxide 29 mmol/L (22-30) 09/22/20 09:00 Anion Gap 8 mmol/L 09/22/20 09:00 BUN 15 mg/dL (7-17) 09/22/20 09:00 Creatinine 0.71 mg/dL (0.52-1.04) 09/22/20 09:00 Est GFR (CKD-EPI)AfAm >90 (>60 ml/min/1.73 sqM) 09/22/20 09:00 Est GFR (CKD-EPI)NonAf >90 (>60 ml/min/1.73 sqM) 09/22/20 09:00 Glucose 171 mg/dL (74-99) H 09/22/20 09:00 Calcium 9.5 mg/dL (8.4-10.2) 09/22/20 09:00 Total Bilirubin 0.5 mg/dL (0.2-1.3) 09/22/20 09:00 AST 23 U/L (14-36) 09/22/20 09:00 ALT 20 U/L (4-34) 09/22/20 09:00 Alkaline Phosphatase 69 U/L (38-126) 09/22/20 09:00 Total Protein 6.8 g/dL (6.3-8.2) 09/22/20 09:00 Albumin 3.8 g/dL (3.5-5.0) 09/22/20 09:00 Vital Signs Temp 98.3 F 09/24/20 06:30 Pulse 84 09/24/20 06:30 Resp 17 09/23/20 06:31 BP 96/55 09/24/20 06:30 Pulse Ox 96 09/23/20 06:31 Intake & Output 09/23/20 09/24/20 09/24/20 18:59 06:59 18:59 Weight 46.3 kg Patient Condition at Discharge: Stable Plan - Discharge Summary Discharge Rx Participant: Yes New Discharge Prescriptions: New ARIPiprazole [Abilify] 30 mg PO DAILY 30 Days tab Venlafaxine HCl ER [Effexor XR] 37.5 mg PO HS 30 Days cap.er.24h polyethylene glycoL 3350 [Miralax] 17 gm PO DAILY 30 Days powd.pack Pantoprazole [Protonix] 40 mg PO AC-BID 30 Days tablet. Mirtazapine [Remeron] 45 mg PO HS 30 Days tab Sennosides-Docusate Sodium [Senokot-S] 2 each PO BID 30 Days tab Discontinued Citalopram Hydrobromide [CeleXA] 20 mg PO DAILY ARIPiprazole [Abilify] 10 mg PO DAILY tab Amoxic-Pot Clav 875-125Mg [Augmentin 875-125] 1 tab PO BID 5 Days #10 tab polyethylene glycoL 3350 [Miralax] 17 gm PO DAILY #30 packet Mirtazapine [Remeron] 30 mg PO HS tab Discharge Medication List ARIPiprazole [Abilify] 30 mg PO DAILY 30 Days tab 09/24/20 [Rx] Mirtazapine [Remeron] 45 mg PO HS 30 Days tab 09/24/20 [Rx] Pantoprazole [Protonix] 40 mg PO AC-BID 30 Days tablet. 09/24/20 [Rx] Sennosides-Docusate Sodium [Senokot-S] 2 each PO BID 30 Days tab 09/24/20 [Rx] Venlafaxine HCl ER [Effexor XR] 37.5 mg PO HS 30 Days cap.er.24h 09/24/20 [Rx] polyethylene glycoL 3350 [Miralax] 17 gm PO DAILY 30 Days powd.pack 09/24/20 [Rx] Follow up Appointment(s)/Referral(s): [facility] - 09/28/20 12:00 pm (Marii Peña) Activity/Diet/Wound Care/Special Instructions: Activity and diet as tolerated. Avoid the use of street drugs and alcohol. Take all medications as prescribed. When you are in need of refills on your medications please contact your medical provider and/or outpatient psychiatrist to have this done. Please go to scheduled outpatient appointment for aftercare treatment. If symptoms return or become worse, call the crisis line at and/or go to the nearest emergency room for evaluation. Discharge Disposition: HOME SELF-CARE
== END 2020-09-24 13:20 | disposition home or self-care (01) | DRG 885 ==
LOC: EDBD 16:46 → 3MHU 16:46
PROVIDERS: ADMIT Psychiatry & Neurology Psychiatry; ATTEND Psychiatry & Neurology Psychiatry
DX: F33.3 Major depressive disorder, recurrent, severe with psychotic symptoms (principal); R45.851 Suicidal ideations; Z68.1 Body mass index [BMI] 19.9 or less, adult; R62.7 Adult failure to thrive; R45.850 Homicidal ideations; R63.6 Underweight; F41.1 Generalized anxiety disorder; Z91.5 Personal history of self-harm; R13.10 Dysphagia, unspecified; R63.3 Feeding difficulties; K11.21 Acute sialoadenitis; F12.10 Cannabis abuse, uncomplicated; M54.5 Low back pain; K59.00 Constipation, unspecified; Z79.899 Other long term (current) drug therapy; Z56.0 Unemployment, unspecified; Z86.19 Personal history of other infectious and parasitic diseases; Z87.81 Personal history of (healed) traumatic fracture; Z90.710 Acquired absence of both cervix and uterus; Z87.42 Personal history of other diseases of the female genital tract; Z98.818 Other dental procedure status; Z98.890 Other specified postprocedural states; Z87.891 Personal history of nicotine dependence; Z82.3 Family history of stroke
CPT/HCPCS: 80048; 80053; 85025

== ENCOUNTER → 2020-10-09 | Outpatient (CLI) | payer BC ==
--- NOTE | 2020-10-09 15:55 | CT ---
EXAMINATION TYPE: CT soft tissue neck w con DATE OF EXAM: 10/09/2020 HISTORY: Left sided parotid mass. BB placed on region of interest. COMPARISON: CT neck September 10, 2020 CT DLP: 302 mGycm. Automated Exposure Control for Dose Reduction was Utilized. TECHNIQUE: CT scan of the neck is performed with IV Contrast, patient injected with 100ml mL of Isov ue 300, axial images are obtained, coronal and sagittal reformatted images are reviewed. FINDINGS: Airway: Scattered thyroid nodules redemonstrated including greater than 1.0 cm left thyroid nodules c oronal image 54. Filling of secretions in the vallecula is noted. [id number] biapical pleural/p arenchymal scarring. Retained calcified secretions in the lateral aspect of the oropharynx bilaterall y redemonstrated. Parotid/submandibular glands: Prior study left parotid gland showed heterogeneous enlargement and enh ancement, current study shows persistent ill-definition and enlargement versus the opposite right sumit e with surrounding fluid and fat stranding into the adjacent subcutaneous fat. There is less prominen t enhancement versus prior study. No focal solid or cystic mass or lesion seen on current study. Submandibular glands are symmetric and remain within normal limits. Carotid/Vascular Structures: Moderate mixed plaque right proximal internal carotid artery without sig nificant stenosis remains present. Osseous Structures: Loss of normal cervical curvature with mild to moderate multilevel disc space radha rowing and slight underlying scoliotic curvature on coronal images . Other: Few scattered prominent but subcentimeter lymph nodes throughout the neck bilaterally. No new greater than 1 cm neck adenopathy. IMPRESSION: Findings consistent with recurrent or persistent left-sided parotitis consider infectious and/or inflammatory etiologies. No suspicious underlying mass identified.
== END | disposition home or self-care (01) ==
LOC: RADCTMAIN 13:49
PROVIDERS: ATTEND Otolaryngology
DX: R22.1 Localized swelling, mass and lump, neck (principal)
CPT/HCPCS: 70491; Q9967

== ENCOUNTER → 2021-10-31 | Outpatient (CLI) | payer BC ==
--- NOTE | 2021-11-04 13:13 | MM ---
Reason for exam: screening (asymptomatic). Last mammogram was performed 2 years and 4 months ago. History: Patient is postmenopausal. Physical Findings: A clinical breast exam by your physician is recommended on an annual basis and results should be correlated with mammographic findings. MG Screening Mammo w CAD Bilateral CC and MLO view(s) were taken. Prior study comparison: June 17, 2019, bilateral MG 3d screening mammo w/cad. June 01, 2018, bilateral MG 3d screening mammo w/cad. The breast tissue is heterogeneously dense. This may lower the sensitivity of mammography. No significant changes when compared with prior studies. ASSESSMENT: Benign, BI-RAD 2 RECOMMENDATION: Routine screening mammogram of both breasts in 1 year.
== END | disposition home or self-care (01) ==
LOC: RADMAMWWP 13:34
PROVIDERS: ATTEND Family Medicine
DX: Z12.31 Encounter for screening mammogram for malignant neoplasm of breast (principal); Z78.0 Asymptomatic menopausal state
CPT/HCPCS: 77067

== ENCOUNTER → 2023-01-08 | Outpatient (CLI) | payer BC ==
--- NOTE | 2023-01-08 16:10 | BD ---
EXAMINATION TYPE: Axial Bone Density DATE OF EXAM: 01/08/2023 CLINICAL HISTORY: 62 years old Female. ICD-10 CODE: Z78.0 POST MENOPAUSAL WITHOUT HRT Height: 64.5 Weight: 182.3 FRAX RISK QUESTIONS: Alcohol (3 or more units per day): no Family History (Parent hip fracture): no Glucocorticoids (More than 3mos): no History of Fracture in Adulthood: humerus Secondary Osteoporosis: 1. Type 1 Diabetes: no 2. Hyperthyroidism: no 3. Menopause before 45: no 4. Malnutrition: no 5. Chronic liver disease: no Rheumatoid Arthritis: no Current Tobacco Use: no RISK FACTORS HISTORY OF: Hip Fracture (Right/Left): no Spine Fracture: no History of Wrist Fracture: no Surgery to Spine/Hip(right/left)/Wrist (right/left): no Family History of Osteoporosis: no Active: yes Diet low in dairy products/other sources of calcium: yes Postmenopausal woman: yes Take estrogen and/or progesterone medications: no Lost more than 2 inches in height since high school: no Frequent falls: no Poor Health: no Hyperparathyroidism: no Adrenal Insufficiency: no MEDICATIONS: Prednisone or other steroids: no Thyroid Medications: no Osteoporosis Medications: no Additional Medications: depression/anxiety, metformin Additional History: EXAM MEASUREMENTS: Bone mineral densitometry was performed using the [employer] System. Bone mineral density as measured about the Lumbar spine is: ----- L1-L4(G/cm2): 0.875 T Score Values are as follows: ----- L1: -2.2 ----- L2: -2.7 ----- L3: -2.8 ----- L4: -2.6 ----- L1-L4: -2.5 Z Score Values are as follows: ----- L1: -1.5 ----- L2: -2.1 ----- L3: -2.1 ----- L4: -1.9 ----- L1-L4: -1.8 Bone mineral density has: increased 2.1% since the study of 06/17/2019 Bone mineral density about the R hip (g/cm2): 0.825 Bone mineral density about the L hip (g/cm2): 0.883 T Score values are as follows: -----R Neck: -2.2 -----L Neck: -2.3 -----R Total: -1.4 -----L Total: -1.0 Z Score values are as follows: -----R Neck: -1.3 -----L Neck: -1.4 -----R Total: -0.9 -----L Total: -0.4 Bone mineral density has: increased 3.9% since the study of 06/17/2019 FRAX%s: The graph provided illustrates a17.9%chance for a major osteoporotic fx and a 3.0%chance for the hips probability for fx in 10 years time. IMPRESSION: Osteopenia (T Score between -2.5 and -1). There is slightly increased risk of fracture and the patient may be considered for treatment. Re-Screen 2-5 years. NOTE: T-SCORE=SD OF THE YOUNG ADULT MEAN.
--- NOTE | 2023-01-11 12:45 | MM ---
Reason for Exam: Screening (asymptomatic). Last mammogram was performed 1 year(s) and 2 month(s) ago. Patient History: Menarche at age 14. First Full-Term at age 29. Hysterectomy at age 57. Postmenopausal. Risk Values: Snehal 5 year model risk: 1.6%. NCI Lifetime model risk: 7.9%. Prior Study Comparison: 06/01/2018 Bilateral Screening Mammogram, [facility]. 06/17/2019 Bilateral Screening Mammogram, [facility]. 10/31/2021 Bilateral Screening Mammogram, [facility]. Tissue Density: The breast tissue is heterogeneously dense. This may lower the sensitivity of mammography. Findings: Analyzed By CAD. There is no suspicious group of microcalcifications or new suspicious mass in either breast. Overall Assessment: Negative, BI-RAD 1 Management: Screening Mammogram of both breasts in 1 year. 1. Patient should continue monthly self breast exams. 2. A clinical breast exam by your physician is recommended on an annual basis. 3. This exam should not preclude additional follow-up of suspicious palpable abnormalities. Electronically signed and approved by: Kana Sheppard M.D. Radiologist
== END | disposition home or self-care (01) ==
LOC: RADMAMWWP 14:27
PROVIDERS: ATTEND Family Medicine
DX: Z12.31 Encounter for screening mammogram for malignant neoplasm of breast (principal); M85.89 Other specified disorders of bone density and structure, multiple sites; Z78.0 Asymptomatic menopausal state
CPT/HCPCS: 77067; 77080

== ENCOUNTER → 2024-02-10 | Outpatient (CLI) | payer BC ==
--- NOTE | 2024-02-11 19:10 | MM ---
Reason for Exam: Screening (asymptomatic). Last mammogram was performed 1 year(s) and 1 month(s) ago. Patient History: Menarche at age 14. First Full-Term at age 29. Hysterectomy at age 57. Postmenopausal. Risk Values: Snehal 5 year model risk: 1.7%. NCI Lifetime model risk: 7.7%. Prior Study Comparison: 06/17/2019 Bilateral Screening Mammogram, [facility]. 10/31/2021 Bilateral Screening Mammogram, [facility]. 01/08/2023 Bilateral MG screening mammo w CAD, [facility]. Tissue Density: The breasts are heterogeneously dense, which may obscure small masses. Findings: Analyzed By CAD. There is no suspicious group of microcalcifications or new suspicious mass in either breast. Overall Assessment: Negative, BI-RAD 1 Management: Screening Mammogram of both breasts in 1 year. . Patient should continue monthly self-breast exams. A clinical breast exam by your physician is recommended on an annual basis. This exam should not preclude additional follow-up of suspicious palpable abnormalities. Note on Snehal scores and lifetime risk: 1. A Snehal score greater than 3% is considered moderate risk. If this is the case, consider specialist referral to assess eligibility for a risk reducing agent. 2. If overall lifetime risk for the development of breast cancer is 20% or higher, the patient may qualify for future screening with alternating mammogram and breast MRI. Electronically signed and approved by: Kana Sheppard M.D. Radiologist
== END | disposition home or self-care (01) ==
LOC: RADMAMWWP 09:08
PROVIDERS: ATTEND Family Medicine
DX: Z12.31 Encounter for screening mammogram for malignant neoplasm of breast (principal); Z78.0 Asymptomatic menopausal state
CPT/HCPCS: 77067

== ENCOUNTER → 2025-03-03 | Outpatient (CLI) | payer BC ==
--- NOTE | 2025-03-03 10:42 | MM ---
Reason for Exam: Screening (asymptomatic). Last mammogram was performed 1 year(s) and 1 month(s) ago. Patient History: Menarche at age 14. First Full-Term at age 29. Hysterectomy at age 57. Postmenopausal. Risk Values: Snehal 5 year model risk: 1.7%. NCI Lifetime model risk: 7.4%. Prior Study Comparison: 10/31/2021 Bilateral Screening Mammogram, [facility]. 01/08/2023 Bilateral MG screening mammo w CAD, [facility]. 02/10/2024 Bilateral MG screening mammo w CAD, [facility]. Tissue Density: The breasts are heterogeneously dense, which may obscure small masses. Findings: Analyzed By CAD. Right breast: Asymmetry on MLO view anterior depth retroareolar region. Left breast: There is no suspicious group of microcalcifications or new suspicious mass. Overall Assessment: Incomplete: need additional imaging evaluation, BI-RAD 0 Management: Diagnostic Mammogram of the right breast. Spot compression imaging of the right breast MLO view. ] [facility] will attempt to contact patient to return for supplemental views and ultrasound if indicated. Patient should continue monthly self-breast exams. A clinical breast exam by your physician is recommended on an annual basis. This exam should not preclude additional follow-up of suspicious palpable abnormalities. Note on Snehal scores and lifetime risk: 1. A Snehal score greater than 3% is considered moderate risk. If this is the case, consider specialist referral to assess eligibility for a risk reducing agent. 2. If overall lifetime risk for the development of breast cancer is 20% or higher, the patient may qualify for future screening with alternating mammogram and breast MRI. [facility], , 03/03/2025 10:39 AM. Electronically signed and approved by: Esdras Clark DO
--- NOTE | 2025-03-03 11:16 | BD ---
EXAMINATION TYPE: Axial Bone Density DATE OF EXAM: 03/03/2025 CLINICAL HISTORY: 64 years old Female. ICD-10 CODE: M85.9 DISORDER OF BONE DENSITY AN , Additional H istory: Height: 64.75 Weight: 176.9 FRAX RISK QUESTIONS: Alcohol (3 or more units per day): no Family History (Parent hip fracture): no Glucocorticoids (More than 3mos): no (Ex: prednisone, prednisolone, methylprednisolone, dexamethasone, and hydrocortisone). History of Fracture in Adulthood: yes Secondary Osteoporosis: 1. Type 1 Diabetes: no 2. Hyperthyroidism: no 3. Menopause before 45: no 4. Malnutrition: no 5. Chronic liver disease: no Rheumatoid Arthritis: no Current Tobacco Use: no RISK FACTORS HISTORY OF: Hip Fracture (Right/Left): no Spine Fracture: no History of Wrist Fracture: no Surgery to Spine/Hip(right/left)/Wrist (right/left): no MEDICATIONS: Thyroid Medications: no Osteoporosis Medications: no EXAM MEASUREMENTS: Bone mineral densitometry was performed using the [employer] System. Bone mineral density as measured about the Lumbar spine is: ----- L1-L4(G/cm2): 0.867 T Score Values are as follows: ----- L1: -2.4 ----- L2: -2.8 ----- L3: -2.7 ----- L4: -2.7 ----- L1-L4: -2.6 Z Score Values are as follows: ----- L1: -1.4 ----- L2: -1.9 ----- L3: -1.7 ----- L4: -1.8 ----- L1-L4: -1.7 Bone mineral density has: decreased -0.9 % since study of: 01/08/2023 Bone mineral density about the R hip (g/cm2): 0.844 Bone mineral density about the L hip (g/cm2): 0.919 T Score values are as follows: -----R Neck: -2.1 -----L Neck: -1.9 -----R Total: -1.3 -----L Total: -0.7 Z Score values are as follows: -----R Neck: -1.1 -----L Neck: -0.9 -----R Total: -0.6 -----L Total: 0.0 Bone mineral density has: increased 3.2 % since study of: FRAX%s: The graph provided illustrates a 17.6% chance for a major osteoporotic fx and a 2.8% chance f or the hips probability for fx in 10 years time. IMPRESSION: Osteoporosis (T Score less than -2.5). There is increased fracture risk and therapy is usually indicated based on age. Re-Screen 1-2 years. NOTE: T-SCORE=SD OF THE YOUNG ADULT MEAN. [facility], , 03/03/2025 11:14 AM
== END | disposition home or self-care (01) ==
LOC: RADBDWWP 09:46
PROVIDERS: ATTEND Family Medicine
DX: Z12.31 Encounter for screening mammogram for malignant neoplasm of breast (principal); R92.333 Mammographic heterogeneous density, bilateral breasts; M81.0 Age-related osteoporosis without current pathological fracture; Z78.0 Asymptomatic menopausal state
CPT/HCPCS: 77067; 77080

== ENCOUNTER → 2025-03-07 | Outpatient (CLI) | payer BC ==
--- NOTE | 2025-03-07 10:41 | MM ---
Reason for Exam: Additional evaluation requested from abnormal screening. Last screening mammogram was performed less than 1 month ago. Patient History: Menarche at age 14. First Full-Term at age 29. Left ovary removed at age 57. Right ovary removed at age 57. Hysterectomy at age 57. Postmenopausal. Patient used Hormonal Contraceptives for 4 years. Risk Values: Snehal 5 year model risk: 1.7%. NCI Lifetime model risk: 7.4%. Prior Study Comparison: 05/01/1997 Bilateral Special View Mammogram, [facility]. 03/16/2003 Bilateral Screening Mammogram, [facility]. 11/29/2005 Bilateral Screening Mammogram, [facility]. 03/31/2013 Bilateral Screening Mammogram, [facility]. 04/06/2013 Right Diagnostic Mammogram, [facility]. 04/06/2013 Right Diagnostic Ultrasound, [facility]. 02/26/2015 Bilateral Screening Mammogram, [facility]. 03/18/2016 Bilateral Screening Mammogram, [facility]. 03/20/2016 Right Diagnostic Ultrasound, [facility]. 05/15/2017 Bilateral Screening Mammogram, [facility]. 06/01/2018 Bilateral Screening Mammogram, [facility]. 06/17/2019 Bilateral Screening Mammogram, [facility]. 10/31/2021 Bilateral Screening Mammogram, [facility]. 01/08/2023 Bilateral MG screening mammo w CAD, [facility]. 02/10/2024 Bilateral MG screening mammo w CAD, [facility]. 03/03/2025 Bilateral MG screening mammo w CAD, [facility]. Tissue Density: Right: The breasts are heterogeneously dense, which may obscure small masses. Findings: Analyzed By CAD. No distinct new lesion persists on additional views. Area of concern disperses. Overall Assessment: Negative, BI-RAD 1 Management: Screening Mammogram of both breasts in 1 year. Return to routine follow-up. Results were given to the patient verbally at the time of exam. Patient should continue monthly self-breast exams. A clinical breast exam by your physician is recommended on an annual basis. This exam should not preclude additional follow-up of suspicious palpable abnormalities. Note on Snehal scores and lifetime risk: 1. A Snehal score greater than 3% is considered moderate risk. If this is the case, consider specialist referral to assess eligibility for a risk reducing agent. 2. If overall lifetime risk for the development of breast cancer is 20% or higher, the patient may qualify for future screening with alternating mammogram and breast MRI. [facility], , 03/07/2025 10:37 AM. Electronically signed and approved by: Fam Weber M.D.
== END | disposition home or self-care (01) ==
LOC: RADMAMWWP 10:16
PROVIDERS: ATTEND Family Medicine
DX: R92.8 Other abnormal and inconclusive findings on diagnostic imaging of breast (principal); R92.331 Mammographic heterogeneous density, right breast; Z78.0 Asymptomatic menopausal state; Z92.0 Personal history of contraception
CPT/HCPCS: 77061; 77065